=== PATIENT | female | born 1985 ===

== ENCOUNTER 2019-02-21 16:16 | Inpatient (IN) ==
[2019-02-21] MEDS ORDERED: ACETAMINOPHEN 325 MG TABLET PO PRN (20:24)
[2019-02-21] MEDS ORDERED: PROMETHAZINE 25 MG TABLET PO PRN (20:24)
[2019-02-21] MEDS ORDERED: SODIUM CHLORIDE 0.9% 1,000 ML IV PRN (20:28)
[2019-02-21] MEDS: SODIUM CHLORIDE 0.9% 1,000 ML IV SCH (21:52)
[2019-02-22] MEDS: MORPHINE 4 MG/1 ML VIAL IV PRN ×2 (01:53→10:58)
[2019-02-22 09:20] LABS: Basophils % 1.3 % (0.0-0.8); Hematocrit 24.5 VOL% (35.7-47.0); Hemoglobin 8.2 GM/DL (12.0-16.0); Immature Granulocytes % 0.7 %; Immature Granulocytes Absolute 0.01 #; Lymphocytes # 0.5 10*3/uL (1.4-4.0); Lymphocytes % 30.3 % (21.3-54.2); Mean Corpuscular HGB Conc 33.5 GM/DL (32-36); Mean Corpuscular Volume 87.8 FL (87-102); Monocytes % 7.2 % (1.7-12.7); Neutrophils % 58.5 % (38.7-73.9); Platelet Count 233 T/CUMM (130-400); Red Blood Count 2.79 MC/CUMM (3.8-5.5); Red Cell Distribution Width 15.7 % (9.3-17.3); White Blood Count 1.5 T/CUMM (4-12)
[2019-02-22 09:47] LABS: Band Neutrophils 15 % (0-10); Lymphocytes 28 % (20-55); Platelet Estimate Normal; Segmented Neutrophils 51 % (50-85); Total Cells Counted 100
[2019-02-22 09:48] LABS: Anisocytosis 1+
[2019-02-22 09:52] LABS: Osmolality,Calculated 267.1 MOS/KG (273-304)
[2019-02-22] MEDS ORDERED: ENOXAPARIN 40 MG/0.4 ML SYRINGE SUBCUT SCH (12:00)
[2019-02-22] MEDS: FILGRASTIM-SNDZ 480 MCG/0.8 ML SYRINGE SUBCUT SCH (13:13)
[2019-02-22] MEDS: oxyCODONE/ACETAMINOPHEN 5-325 MG TABLET PO PRN (15:50)
[2019-02-23] MEDS: SODIUM CHLORIDE 0.9% 1,000 ML IV SCH (02:38)
[2019-02-23] MEDS: oxyCODONE/ACETAMINOPHEN 5-325 MG TABLET PO PRN ×5 (02:39→22:55)
[2019-02-23 04:44] LABS: Basophils % 2.2 % (0.0-0.8); Eosinophils % 1.1 % (0.00-10.9); Hemoglobin 7.8 GM/DL (12.0-16.0); Immature Granulocytes % 1.1 %; Immature Granulocytes Absolute 0.01 #; Lymphocytes # 0.3 10*3/uL (1.4-4.0); Lymphocytes % 36.6 % (21.3-54.2); Mean Corpuscular HGB Conc 32.5 GM/DL (32-36); Mean Corpuscular Volume 90.2 FL (87-102); Monocytes % 17.2 % (1.7-12.7); Neutrophils % 41.8 % (38.7-73.9); Platelet Count 247 T/CUMM (130-400); Red Blood Count 2.66 MC/CUMM (3.8-5.5); Red Cell Distribution Width 16.7 % (9.3-17.3)
[2019-02-23 04:46] LABS: White Blood Count 0.9 T/CUMM (4-12)
[2019-02-23 05:00] LABS: Calcium 8.1 MG/DL (8.5-10.1)
[2019-02-23 06:13] LABS: Anisocytosis Slight; Band Neutrophils 4 % (0-10); Eosinophils 2 % (0-10); Lymphocytes 42 % (20-55); Microcytosis 1+; Segmented Neutrophils 38 % (50-85); Total Cells Counted 100
[2019-02-23 06:14] LABS: Polychromasia Few; Tear Drop Cells Few
[2019-02-23 06:15] LABS: Platelet Estimate Normal
[2019-02-23] MEDS: FILGRASTIM-SNDZ 480 MCG/0.8 ML SYRINGE SUBCUT SCH (08:35)
[2019-02-23] MEDS: MEROPENEM 1,000 MG in SODIUM CHLORIDE 0.9% 100 ML IV SCH ×2 (08:35→20:26)
[2019-02-23] MEDS: PANTOPRAZOLE 40 MG TABLET PO SCH (14:17)
[2019-02-24 02:27] LABS: Basophils % 2.1 % (0.0-0.8); Eosinophils # 0.1 10*3/uL (0.0-0.87); Eosinophils % 3.5 % (0.00-10.9); Hemoglobin 9.5 GM/DL (12.0-16.0); Immature Granulocytes % 13.4 %; Immature Granulocytes Absolute 0.19 #; Lymphocytes # 0.6 10*3/uL (1.4-4.0); Lymphocytes % 40.1 % (21.3-54.2); Mean Corpuscular HGB Conc 32.8 GM/DL (32-36); Mean Corpuscular Volume 90.3 FL (87-102); Mean Platelet Volume 8.8 FL (9.6-12.0); Monocytes % 29.6 % (1.7-12.7); NRBC # 0.02 10*3/uL; Neutrophils % 11.3 % (38.7-73.9); Platelet Count 219 T/CUMM (130-400); Red Blood Count 3.21 MC/CUMM (3.8-5.5); Red Cell Distribution Width 16.9 % (9.3-17.3); White Blood Count 1.4 T/CUMM (4-12)
[2019-02-24 02:50] LABS: Calcium 7.9 MG/DL (8.5-10.1); Osmolality,Calculated 274.5 MOS/KG (273-304)
[2019-02-24 03:40] LABS: Band Neutrophils 10 % (0-10); Eosinophils 5 % (0-10); Lymphocytes 20 % (20-55); Metamyelocytes 5 %; Myelocytes 15 %; Segmented Neutrophils 10 % (50-85); Total Cells Counted 100
[2019-02-24 03:41] LABS: Anisocytosis 1+; Platelet Estimate Adequate
[2019-02-24] MEDS: SODIUM CHLORIDE 0.9% 1,000 ML IV SCH (05:17)
[2019-02-24] MEDS ORDERED: MAGNESIUM SULF RIDER 4 GM in PREMIX 1 EACH IV PRN (07:40)
[2019-02-24] MEDS ORDERED: MAGNESIUM SULF RIDER 2 GM in PREMIX 1 EACH IV PRN (07:40)
[2019-02-24] MEDS: POTASSIUM CHLORIDE 20 MEQ TABLET PO PRN ×2 (09:28→14:18)
[2019-02-24] MEDS: PANTOPRAZOLE 40 MG TABLET PO SCH (09:28)
[2019-02-24] MEDS: oxyCODONE/ACETAMINOPHEN 5-325 MG TABLET PO PRN ×2 (09:29→14:18)
[2019-02-24] MEDS: FILGRASTIM-SNDZ 480 MCG/0.8 ML SYRINGE SUBCUT SCH (09:30)
[2019-02-24] MEDS: MEROPENEM 1,000 MG in SODIUM CHLORIDE 0.9% 100 ML IV SCH ×2 (09:32→20:15)
[2019-02-25] MEDS: oxyCODONE/ACETAMINOPHEN 5-325 MG TABLET PO PRN ×2 (00:15→09:29)
[2019-02-25] MEDS: MORPHINE 4 MG/1 ML VIAL IV PRN ×3 (02:03→20:21)
[2019-02-25 04:54] LABS: Basophils # 0.1 10*3/uL (0.0-0.2); Basophils % 1.9 % (0.0-0.8); Eosinophils # 0.1 10*3/uL (0.0-0.87); Eosinophils % 1.4 % (0.00-10.9); Hematocrit 30.3 VOL% (35.7-47.0); Hemoglobin 9.6 GM/DL (12.0-16.0); Immature Granulocytes % 6.9 %; Immature Granulocytes Absolute 0.29 #; Lymphocytes # 0.9 10*3/uL (1.4-4.0); Lymphocytes % 21.8 % (21.3-54.2); Mean Corpuscular HGB Conc 31.7 GM/DL (32-36); Mean Corpuscular Volume 92.7 FL (87-102); Mean Platelet Volume 9.2 FL (9.6-12.0); Monocytes % 16.8 % (1.7-12.7); Neutrophils % 51.2 % (38.7-73.9); Platelet Count 229 T/CUMM (130-400); Red Blood Count 3.27 MC/CUMM (3.8-5.5); Red Cell Distribution Width 17.3 % (9.3-17.3); White Blood Count 4.2 T/CUMM (4-12)
[2019-02-25 05:17] LABS: Calcium 8.1 MG/DL (8.5-10.1); Osmolality,Calculated 268.8 MOS/KG (273-304)
[2019-02-25 05:28] LABS: Band Neutrophils 6 % (0-10); Eosinophils 6 % (0-10); Lymphocytes 13 % (20-55); Platelet Estimate Adequate; Segmented Neutrophils 52 % (50-85); Total Cells Counted 100
[2019-02-25 05:29] LABS: Hypochromasia 1+
[2019-02-25] MEDS: MEROPENEM 1,000 MG in SODIUM CHLORIDE 0.9% 100 ML IV SCH (09:28)
[2019-02-25] MEDS: FILGRASTIM-SNDZ 480 MCG/0.8 ML SYRINGE SUBCUT SCH (09:28)
[2019-02-25] MEDS: PANTOPRAZOLE 40 MG TABLET PO SCH (09:29)
[2019-02-25] MEDS ORDERED: HEPARIN LOCK FLUSH 500 UNIT/5 ML SYRINGE IV ONE (09:34)
[2019-02-25] MEDS: fentaNYL 12 MCG/HR PATCH TRANSDERM SCH (09:36)
[2019-02-25] MEDS: MEROPENEM 500 MG in SODIUM CHLORIDE 0.9% 100 ML IV SCH ×2 (15:07→20:25)
[2019-02-25] MEDS: SODIUM CHLORIDE 0.9% 1,000 ML IV SCH (15:08)
[2019-02-25] MEDS: VANCOMYCIN INJ 1,500 MG in SODIUM CHLORIDE 0.9% 500 ML IV SCH (17:07)
[2019-02-26] MEDS: oxyCODONE/ACETAMINOPHEN 5-325 MG TABLET PO PRN (00:27)
[2019-02-26] MEDS: MEROPENEM 500 MG in SODIUM CHLORIDE 0.9% 100 ML IV SCH ×4 (03:10→21:02)
[2019-02-26] MEDS: VANCOMYCIN INJ 1,500 MG in SODIUM CHLORIDE 0.9% 500 ML IV SCH ×2 (03:52→17:23)
[2019-02-26 04:34] LABS: Basophils # 0.1 10*3/uL (0.0-0.2); Basophils % 0.4 % (0.0-0.8); Eosinophils # 0.1 10*3/uL (0.0-0.87); Eosinophils % 0.5 % (0.00-10.9); Hematocrit 31.1 VOL% (35.7-47.0); Hemoglobin 9.9 GM/DL (12.0-16.0); Immature Granulocytes % 11.7 %; Immature Granulocytes Absolute 1.67 #; Lymphocytes # 1.1 10*3/uL (1.4-4.0); Lymphocytes % 7.7 % (21.3-54.2); Mean Corpuscular HGB Conc 31.8 GM/DL (32-36); Mean Corpuscular Volume 92.8 FL (87-102); Monocytes % 13.2 % (1.7-12.7); Neutrophils % 66.5 % (38.7-73.9); Platelet Count 224 T/CUMM (130-400); Red Blood Count 3.35 MC/CUMM (3.8-5.5); Red Cell Distribution Width 17.6 % (9.3-17.3); White Blood Count 14.2 T/CUMM (4-12)
[2019-02-26 05:02] LABS: Anisocytosis 1+; Band Neutrophils 6 % (0-10); Hypochromasia 1+; Lymphocytes 13 % (20-55); Metamyelocytes 1 %; Microcytosis Slight; Segmented Neutrophils 63 % (50-85); Total Cells Counted 100
[2019-02-26 05:03] LABS: Platelet Estimate Adequate
[2019-02-26 05:06] LABS: Calcium 7.8 MG/DL (8.5-10.1); Osmolality,Calculated 278.1 MOS/KG (273-304)
[2019-02-26] MEDS ORDERED: POTASSIUM CHLORIDE 20 MEQ TABLET PO ONE (07:23)
[2019-02-26] MEDS: PANTOPRAZOLE 40 MG TABLET PO SCH (09:11)
[2019-02-26] MEDS: MORPHINE 4 MG/1 ML VIAL IV PRN (11:48)
[2019-02-27] MEDS: SODIUM CHLORIDE 0.9% 1,000 ML IV SCH (04:15)
[2019-02-27] MEDS: MEROPENEM 500 MG in SODIUM CHLORIDE 0.9% 100 ML IV SCH ×4 (04:15→21:35)
[2019-02-27] MEDS: VANCOMYCIN INJ 1,500 MG in SODIUM CHLORIDE 0.9% 500 ML IV SCH ×2 (04:30→17:30)
[2019-02-27 05:15] LABS: Basophils % 0.3 % (0.0-0.8); Eosinophils # 0.1 10*3/uL (0.0-0.87); Eosinophils % 0.7 % (0.00-10.9); Hematocrit 30.9 VOL% (35.7-47.0); Hemoglobin 9.7 GM/DL (12.0-16.0); Immature Granulocytes Absolute 3.03 #; Lymphocytes # 0.8 10*3/uL (1.4-4.0); Lymphocytes % 8.9 % (21.3-54.2); Mean Corpuscular HGB Conc 31.4 GM/DL (32-36); Mean Corpuscular Volume 93.6 FL (87-102); Mean Platelet Volume 9.6 FL (9.6-12.0); Monocytes % 13.4 % (1.7-12.7); Neutrophils % 43.7 % (38.7-73.9); Platelet Count 237 T/CUMM (130-400); Red Cell Distribution Width 17.5 % (9.3-17.3); White Blood Count 9.2 T/CUMM (4-12)
[2019-02-27 05:21] LABS: Calcium 7.8 MG/DL (8.5-10.1); Osmolality,Calculated 275.3 MOS/KG (273-304)
[2019-02-27 06:15] LABS: Band Neutrophils 12 % (0-10); Lymphocytes 13 % (20-55); Myelocytes 13 %; Segmented Neutrophils 46 % (50-85)
[2019-02-27 06:17] LABS: Anisocytosis 1+; Ovalocytes 1+; Tear Drop Cells 1+
[2019-02-27 06:18] LABS: Platelet Estimate Adequate
[2019-02-27] MEDS ORDERED: POTASSIUM CHLORIDE 20 MEQ TABLET PO ONE (07:10)
[2019-02-27 07:46] LABS: Metamyelocytes 1 %
[2019-02-27 07:47] LABS: Total Cells Counted 100
[2019-02-27] MEDS: PANTOPRAZOLE 40 MG TABLET PO SCH (08:52)
[2019-02-27] MEDS ORDERED: DIAZEPAM 5 MG TABLET PO ONE (14:04)
[2019-02-27] MEDS ORDERED: ONDANSETRON 4 MG/2 ML VIAL IV ONE (14:06)
[2019-02-27] MEDS ORDERED: fentaNYL 100 MCG/2 ML VIAL IV ONE (14:06)
[2019-02-27] MEDS ORDERED: MIDAZOLAM 2 MG/2 ML VIAL IV ONE (14:06)
[2019-02-28] MEDS: MEROPENEM 500 MG in SODIUM CHLORIDE 0.9% 100 ML IV SCH ×4 (03:50→21:26)
[2019-02-28] MEDS: VANCOMYCIN INJ 1,500 MG in SODIUM CHLORIDE 0.9% 500 ML IV SCH ×2 (05:05→17:13)
[2019-02-28] MEDS: SODIUM CHLORIDE 0.9% 1,000 ML IV SCH ×2 (05:38→21:29)
[2019-02-28 06:40] LABS: Basophils % 0.2 % (0.0-0.8); Eosinophils # 0.1 10*3/uL (0.0-0.87); Eosinophils % 1.1 % (0.00-10.9); Hematocrit 29.7 VOL% (35.7-47.0); Hemoglobin 9.5 GM/DL (12.0-16.0); Immature Granulocytes % 24.1 %; Immature Granulocytes Absolute 1.94 #; Lymphocytes # 0.8 10*3/uL (1.4-4.0); Mean Corpuscular Volume 92.2 FL (87-102); Mean Platelet Volume 9.6 FL (9.6-12.0); Monocytes % 16.1 % (1.7-12.7); Neutrophils % 48.5 % (38.7-73.9); Platelet Count 269 T/CUMM (130-400); Red Blood Count 3.22 MC/CUMM (3.8-5.5); Red Cell Distribution Width 17.2 % (9.3-17.3); White Blood Count 8.1 T/CUMM (4-12)
[2019-02-28 06:52] LABS: Calcium 7.8 MG/DL (8.5-10.1); Osmolality,Calculated 275.4 MOS/KG (273-304)
[2019-02-28 07:45] LABS: Band Neutrophils 12 % (0-10); Lymphocytes 18 % (20-55); Metamyelocytes 1 %; Myelocytes 7 %; Platelet Estimate Adequate; Segmented Neutrophils 50 % (50-85); Total Cells Counted 100
[2019-02-28 07:46] LABS: Hypochromasia 1+
[2019-02-28 07:47] LABS: Microcytosis Slight
[2019-02-28] MEDS ORDERED: DIAZEPAM 5 MG TABLET PO ONE (08:30)
[2019-02-28] MEDS ORDERED: MORPHINE 10 MG/1 ML VIAL ONE (09:05)
[2019-02-28] MEDS ORDERED: MIDAZOLAM 2 MG/2 ML VIAL ONE (09:09)
[2019-02-28] MEDS ORDERED: fentaNYL 100 MCG/2 ML VIAL ONE (09:09)
[2019-02-28] MEDS: fentaNYL 12 MCG/HR PATCH TRANSDERM SCH (10:47)
[2019-02-28] MEDS: oxyCODONE/ACETAMINOPHEN 5-325 MG TABLET PO PRN (11:11)
[2019-02-28] MEDS: POTASSIUM CHLORIDE 20 MEQ TABLET PO SCH ×2 (11:12→21:23)
[2019-02-28] MEDS: fentaNYL 25 MCG/HR PATCH TRANSDERM SCH (11:12)
[2019-02-28] MEDS: PANTOPRAZOLE 40 MG TABLET PO SCH (11:12)
[2019-02-28] MEDS ORDERED: MIDAZOLAM 2 MG/2 ML VIAL IV ONE (13:06)
[2019-02-28] MEDS ORDERED: fentaNYL 100 MCG/2 ML VIAL IV ONE (13:06)
[2019-02-28] MEDS: MORPHINE 4 MG/1 ML VIAL IV PRN ×2 (15:44→18:48)
[2019-02-28] MEDS: oxyCODONE IR 5 MG TABLET PO PRN (17:16)
[2019-03-01] MEDS: oxyCODONE IR 5 MG TABLET PO PRN ×3 (03:59→21:16)
[2019-03-01] MEDS: MEROPENEM 500 MG in SODIUM CHLORIDE 0.9% 100 ML IV SCH ×4 (04:35→21:15)
[2019-03-01 04:56] LABS: Basophils # 0.1 10*3/uL (0.0-0.2); Basophils % 1.3 % (0.0-0.8); Eosinophils # 0.1 10*3/uL (0.0-0.87); Eosinophils % 1.7 % (0.00-10.9); Hematocrit 30.4 VOL% (35.7-47.0); Hemoglobin 9.5 GM/DL (12.0-16.0); Immature Granulocytes Absolute 1.17 #; Lymphocytes # 0.9 10*3/uL (1.4-4.0); Lymphocytes % 12.5 % (21.3-54.2); Mean Corpuscular HGB Conc 31.3 GM/DL (32-36); Mean Corpuscular Volume 93.8 FL (87-102); Mean Platelet Volume 9.1 FL (9.6-12.0); Monocytes % 16.7 % (1.7-12.7); Neutrophils % 50.8 % (38.7-73.9); Platelet Count 327 T/CUMM (130-400); Red Blood Count 3.24 MC/CUMM (3.8-5.5); Red Cell Distribution Width 16.9 % (9.3-17.3); White Blood Count 6.9 T/CUMM (4-12)
[2019-03-01 05:28] LABS: Calcium 7.8 MG/DL (8.5-10.1); Osmolality,Calculated 278.1 MOS/KG (273-304)
[2019-03-01 05:33] LABS: Band Neutrophils 6 % (0-10); Eosinophils 3 % (0-10); Hypochromasia 1+; Lymphocytes 11 % (20-55); Ovalocytes Slight; Platelet Estimate Adequate; Segmented Neutrophils 64 % (50-85); Total Cells Counted 100
[2019-03-01 05:34] LABS: Microcytosis Slight
[2019-03-01] MEDS: SODIUM CHLORIDE 0.9% 1,000 ML IV SCH (05:43)
[2019-03-01] MEDS: VANCOMYCIN INJ 1,500 MG in SODIUM CHLORIDE 0.9% 500 ML IV SCH ×2 (05:43→16:53)
[2019-03-01] MEDS: MORPHINE 4 MG/1 ML VIAL IV PRN (08:18)
[2019-03-01] MEDS: PANTOPRAZOLE 40 MG TABLET PO SCH (08:19)
[2019-03-01] MEDS: POTASSIUM CHLORIDE 20 MEQ TABLET PO SCH ×2 (08:19→21:16)
[2019-03-02 02:52] LABS: Basophils % 0.5 % (0.0-0.8); Eosinophils # 0.1 10*3/uL (0.0-0.87); Eosinophils % 1.5 % (0.00-10.9); Hematocrit 30.2 VOL% (35.7-47.0); Hemoglobin 9.5 GM/DL (12.0-16.0); Immature Granulocytes % 4.3 %; Immature Granulocytes Absolute 0.37 #; Lymphocytes # 0.5 10*3/uL (1.4-4.0); Lymphocytes % 6.2 % (21.3-54.2); Mean Corpuscular HGB Conc 31.5 GM/DL (32-36); Mean Corpuscular Volume 92.9 FL (87-102); Mean Platelet Volume 9.3 FL (9.6-12.0); Monocytes % 13.1 % (1.7-12.7); Neutrophils % 74.4 % (38.7-73.9); Platelet Count 340 T/CUMM (130-400); Red Blood Count 3.25 MC/CUMM (3.8-5.5); Red Cell Distribution Width 16.4 % (9.3-17.3); White Blood Count 8.7 T/CUMM (4-12)
[2019-03-02] MEDS: MEROPENEM 500 MG in SODIUM CHLORIDE 0.9% 100 ML IV SCH ×4 (02:59→20:37)
[2019-03-02 03:24] LABS: Albumin 1.6 G/DL (3.4-5.0); Bilirubin,Total 0.5 MG/DL (0.2-1.0); Osmolality,Calculated 277.3 MOS/KG (273-304); Total Protein 5.4 G/DL (6.4-8.3)
[2019-03-02] MEDS: VANCOMYCIN INJ 1,500 MG in SODIUM CHLORIDE 0.9% 500 ML IV SCH ×2 (04:36→18:08)
[2019-03-02] MEDS: SODIUM CHLORIDE 0.9% 1,000 ML IV SCH (04:36)
[2019-03-02] MEDS: oxyCODONE IR 5 MG TABLET PO PRN ×2 (07:36→20:36)
[2019-03-02] MEDS: PANTOPRAZOLE 40 MG TABLET PO SCH (09:48)
[2019-03-02] MEDS: POTASSIUM CHLORIDE 20 MEQ TABLET PO SCH ×2 (09:48→20:41)
[2019-03-02] MEDS: MORPHINE 4 MG/1 ML VIAL IV PRN (09:55)
[2019-03-03] MEDS: MORPHINE 4 MG/1 ML VIAL IV PRN ×3 (00:27→17:47)
[2019-03-03] MEDS: MEROPENEM 500 MG in SODIUM CHLORIDE 0.9% 100 ML IV SCH ×4 (02:56→20:59)
[2019-03-03] MEDS: oxyCODONE IR 5 MG TABLET PO PRN ×3 (02:57→23:10)
[2019-03-03] MEDS: VANCOMYCIN INJ 1,500 MG in SODIUM CHLORIDE 0.9% 500 ML IV SCH ×2 (04:20→17:46)
[2019-03-03 05:20] LABS: Basophils % 0.4 % (0.0-0.8); Eosinophils # 0.3 10*3/uL (0.0-0.87); Eosinophils % 3.2 % (0.00-10.9); Hematocrit 33.6 VOL% (35.7-47.0); Hemoglobin 10.4 GM/DL (12.0-16.0); Immature Granulocytes % 2.2 %; Immature Granulocytes Absolute 0.22 #; Lymphocytes # 0.9 10*3/uL (1.4-4.0); Lymphocytes % 8.8 % (21.3-54.2); Mean Corpuscular Volume 94.1 FL (87-102); Mean Platelet Volume 9.1 FL (9.6-12.0); Monocytes % 15.5 % (1.7-12.7); Neutrophils % 69.9 % (38.7-73.9); Platelet Count 419 T/CUMM (130-400); Red Blood Count 3.57 MC/CUMM (3.8-5.5); Red Cell Distribution Width 16.5 % (9.3-17.3); White Blood Count 10.1 T/CUMM (4-12)
[2019-03-03 06:03] LABS: Albumin 1.7 G/DL (3.4-5.0); Bilirubin,Total 0.7 MG/DL (0.2-1.0); Calcium 8.2 MG/DL (8.5-10.1); Osmolality,Calculated 272.4 MOS/KG (273-304); Total Protein 6.1 G/DL (6.4-8.3)
[2019-03-03] MEDS: PANTOPRAZOLE 40 MG TABLET PO SCH (08:56)
[2019-03-03] MEDS: fentaNYL 25 MCG/HR PATCH TRANSDERM SCH (08:56)
[2019-03-03] MEDS: POTASSIUM CHLORIDE 20 MEQ TABLET PO SCH ×2 (08:56→20:59)
[2019-03-03] MEDS: FLUCONAZOLE INJ 200 MG in PREMIX 1 EACH IV SCH (13:34)
[2019-03-03] MEDS: oxyCODONE/ACETAMINOPHEN 5-325 MG TABLET PO SCH (20:55)
[2019-03-04 02:30] LABS: Basophils # 0.1 10*3/uL (0.0-0.2); Basophils % 0.6 % (0.0-0.8); Eosinophils # 0.5 10*3/uL (0.0-0.87); Eosinophils % 4.3 % (0.00-10.9); Hematocrit 34.8 VOL% (35.7-47.0); Immature Granulocytes % 2.8 %; Immature Granulocytes Absolute 0.33 #; Lymphocytes # 2.4 10*3/uL (1.4-4.0); Lymphocytes % 20.1 % (21.3-54.2); Mean Corpuscular HGB Conc 31.6 GM/DL (32-36); Monocytes % 14.6 % (1.7-12.7); Neutrophils % 57.6 % (38.7-73.9); Platelet Count 635 T/CUMM (130-400); Red Blood Count 3.74 MC/CUMM (3.8-5.5); Red Cell Distribution Width 16.8 % (9.3-17.3); White Blood Count 11.9 T/CUMM (4-12)
[2019-03-04] MEDS: MORPHINE 4 MG/1 ML VIAL IV PRN ×2 (02:30→14:57)
[2019-03-04] MEDS: MEROPENEM 500 MG in SODIUM CHLORIDE 0.9% 100 ML IV SCH (02:33)
[2019-03-04 02:59] LABS: Albumin 1.8 G/DL (3.4-5.0); Bilirubin,Total 0.8 MG/DL (0.2-1.0); Calcium 8.1 MG/DL (8.5-10.1); Osmolality,Calculated 273.5 MOS/KG (273-304); Total Protein 6.4 G/DL (6.4-8.3)
[2019-03-04] MEDS: VANCOMYCIN INJ 1,500 MG in SODIUM CHLORIDE 0.9% 500 ML IV SCH (04:21)
[2019-03-04] MEDS: LINEZOLID INJ 600 MG in PREMIX 1 EACH IV SCH ×2 (09:16→20:16)
[2019-03-04] MEDS: POTASSIUM CHLORIDE 20 MEQ TABLET PO SCH (09:17)
[2019-03-04] MEDS: oxyCODONE/ACETAMINOPHEN 5-325 MG TABLET PO SCH ×2 (09:17→20:16)
[2019-03-04] MEDS: PANTOPRAZOLE 40 MG TABLET PO SCH (09:17)
[2019-03-04] MEDS ORDERED: LIDOCAINE/PRILOCAINE CREAM 5 GM TUBE TOP ONE (09:38)
[2019-03-04] MEDS: SODIUM CHLORIDE 0.9% 1,000 ML IV SCH (10:55)
[2019-03-04] MEDS: FLUCONAZOLE INJ 200 MG in PREMIX 1 EACH IV SCH (12:32)
[2019-03-04] MEDS: oxyCODONE IR 5 MG TABLET PO PRN (12:33)
[2019-03-05] MEDS: MORPHINE 4 MG/1 ML VIAL IV PRN (02:39)
[2019-03-05 04:39] LABS: Basophils # 0.1 10*3/uL (0.0-0.2); Basophils % 0.9 % (0.0-0.8); Eosinophils # 0.3 10*3/uL (0.0-0.87); Eosinophils % 3.7 % (0.00-10.9); Hematocrit 30.1 VOL% (35.7-47.0); Hemoglobin 9.4 GM/DL (12.0-16.0); Immature Granulocytes Absolute 0.08 #; Lymphocytes # 0.9 10*3/uL (1.4-4.0); Lymphocytes % 10.9 % (21.3-54.2); Mean Corpuscular HGB Conc 31.2 GM/DL (32-36); Mean Corpuscular Volume 93.2 FL (87-102); Mean Platelet Volume 8.6 FL (9.6-12.0); Monocytes % 13.3 % (1.7-12.7); Neutrophils % 70.2 % (38.7-73.9); Platelet Count 535 T/CUMM (130-400); Red Blood Count 3.23 MC/CUMM (3.8-5.5); Red Cell Distribution Width 16.2 % (9.3-17.3); White Blood Count 7.9 T/CUMM (4-12)
[2019-03-05 04:52] LABS: Albumin 1.5 G/DL (3.4-5.0); Bilirubin,Total 0.9 MG/DL (0.2-1.0); Calcium 8.2 MG/DL (8.5-10.1); Osmolality,Calculated 272.5 MOS/KG (273-304); Total Protein 5.5 G/DL (6.4-8.3)
[2019-03-05] MEDS: oxyCODONE IR 5 MG TABLET PO PRN ×2 (04:57→12:39)
[2019-03-05] MEDS: oxyCODONE/ACETAMINOPHEN 5-325 MG TABLET PO SCH ×2 (08:50→20:07)
[2019-03-05] MEDS: PANTOPRAZOLE 40 MG TABLET PO SCH (08:51)
[2019-03-05] MEDS: LINEZOLID INJ 600 MG in PREMIX 1 EACH IV SCH ×2 (08:52→20:08)
[2019-03-05] MEDS: FLUCONAZOLE INJ 200 MG in PREMIX 1 EACH IV SCH (12:40)
[2019-03-06] MEDS: MORPHINE 4 MG/1 ML VIAL IV PRN (02:33)
[2019-03-06] MEDS: oxyCODONE IR 5 MG TABLET PO PRN ×2 (06:32→15:15)
[2019-03-06] MEDS: LINEZOLID INJ 600 MG in PREMIX 1 EACH IV SCH ×2 (09:48→21:19)
[2019-03-06] MEDS: PANTOPRAZOLE 40 MG TABLET PO SCH (09:48)
[2019-03-06] MEDS: oxyCODONE/ACETAMINOPHEN 5-325 MG TABLET PO SCH ×2 (09:48→21:19)
[2019-03-06] MEDS: fentaNYL 25 MCG/HR PATCH TRANSDERM SCH (09:49)
[2019-03-06] MEDS: FLUCONAZOLE INJ 200 MG in PREMIX 1 EACH IV SCH (15:10)
[2019-03-07] MEDS: oxyCODONE IR 5 MG TABLET PO PRN ×2 (01:42→13:58)
[2019-03-07] MEDS: MORPHINE 4 MG/1 ML VIAL IV PRN ×2 (05:58→10:32)
[2019-03-07] MEDS: PANTOPRAZOLE 40 MG TABLET PO SCH (09:23)
[2019-03-07] MEDS: oxyCODONE/ACETAMINOPHEN 5-325 MG TABLET PO SCH (09:23)
[2019-03-07] MEDS: LINEZOLID INJ 600 MG in PREMIX 1 EACH IV SCH (09:24)
[2019-03-07] MEDS: FLUCONAZOLE INJ 200 MG in PREMIX 1 EACH IV SCH (13:50)
[2019-03-07 15:22] VITALS: BP 96/57
== END 2019-03-07 16:20 | DRG 394 ==
LOC: N.4E → SUATTDRO 20:25 → OBSVTOIN 20:25
PROVIDERS: ADMIT Internal Medicine; ATTEND Internal Medicine

== ENCOUNTER 2019-05-21 11:01 | Inpatient (IN) ==
[2019-05-21] MEDS ORDERED: diphenhydrAMINE CAP 25 MG CAPSULE PO PRN (13:42)
[2019-05-21 14:46] LABS: Basophils # 0.1 10*3/uL (0.0-0.2); Basophils % 0.4 % (0.0-0.8); Eosinophils # 0.2 10*3/uL (0.0-0.87); Eosinophils % 1.8 % (0.00-10.9); Hematocrit 33.7 VOL% (35.7-47.0); Hemoglobin 10.7 GM/DL (12.0-16.0); Immature Granulocytes % 0.5 %; Immature Granulocytes Absolute 0.06 #; Lymphocytes # 0.7 10*3/uL (1.4-4.0); Lymphocytes % 5.9 % (21.3-54.2); Mean Corpuscular HGB Conc 31.8 GM/DL (32-36); Mean Corpuscular Volume 95.7 FL (87-102); Mean Platelet Volume 9.3 FL (9.6-12.0); Monocytes % 6.3 % (1.7-12.7); Neutrophils % 85.1 % (38.7-73.9); Platelet Count 463 T/CUMM (130-400); Red Blood Count 3.52 MC/CUMM (3.8-5.5); Red Cell Distribution Width 15.2 % (9.3-17.3); White Blood Count 12.2 T/CUMM (4-12)
[2019-05-21 14:54] LABS: INR 1.1; PT Patient Result 12.1 SECS
[2019-05-21 15:09] LABS: Albumin 2.2 G/DL (3.4-5.0); Bilirubin,Direct 5.56 MG/DL (0.0-0.20); Bilirubin,Indirect 0.9 MG/DL (0.0-1.0); Bilirubin,Total 6.5 MG/DL (0.2-1.0); Total Protein 7.8 G/DL (6.4-8.3)
[2019-05-21 15:09] LABS: Albumin 2.2 G/DL (3.4-5.0); Bilirubin,Direct 5.48 MG/DL (0.0-0.20); Bilirubin,Total 6.5 MG/DL (0.2-1.0); Calcium 8.8 MG/DL (8.5-10.1); Osmolality,Calculated 271.7 MOS/KG (273-304); Total Protein 7.8 G/DL (6.4-8.3)
[2019-05-21 16:38] LABS: Hepatitis B Core IgM Quant 0.08 Index; Hepatitis B Surface Ag Quant < 0.10 Index; Hepatitis B Surface Ag Result Negative (Negative); Hepatitis C Virus Ab Quant 0.03 Index; Hepatitis C Virus Ab Result Negative (Negative)
[2019-05-21] MEDS: ONDANSETRON 4 MG/2 ML VIAL IV PRN (19:34)
[2019-05-21] MEDS: HYDROmorphone 2 MG/1 ML VIAL IV PRN (20:48)
[2019-05-22] MEDS: ONDANSETRON 4 MG/2 ML VIAL IV PRN ×3 (05:34→22:14)
[2019-05-22] MEDS: HYDROmorphone 2 MG/1 ML VIAL IV PRN ×3 (06:27→20:07)
[2019-05-22 06:42] LABS: Basophils # 0.1 10*3/uL (0.0-0.2); Basophils % 0.5 % (0.0-0.8); Eosinophils # 0.4 10*3/uL (0.0-0.87); Eosinophils % 3.5 % (0.00-10.9); Hematocrit 33.1 VOL% (35.7-47.0); Hemoglobin 10.6 GM/DL (12.0-16.0); Immature Granulocytes % 0.4 %; Immature Granulocytes Absolute 0.04 #; Lymphocytes # 0.6 10*3/uL (1.4-4.0); Lymphocytes % 5.8 % (21.3-54.2); Mean Corpuscular Volume 96.5 FL (87-102); Mean Platelet Volume 9.4 FL (9.6-12.0); Monocytes % 5.9 % (1.7-12.7); Neutrophils % 83.9 % (38.7-73.9); Platelet Count 404 T/CUMM (130-400); Red Blood Count 3.43 MC/CUMM (3.8-5.5); Red Cell Distribution Width 15.3 % (9.3-17.3); White Blood Count 10.8 T/CUMM (4-12)
[2019-05-22 07:11] LABS: Albumin 2.2 G/DL (3.4-5.0); Bilirubin,Total 7.2 MG/DL (0.2-1.0); Calcium 9.1 MG/DL (8.5-10.1); Osmolality,Calculated 272.7 MOS/KG (273-304); Total Protein 7.6 G/DL (6.4-8.3)
[2019-05-22] MEDS: PANTOPRAZOLE 40 MG VIAL IV SCH (08:56)
[2019-05-23] MEDS: HYDROmorphone 2 MG/1 ML VIAL IV PRN ×3 (03:55→18:15)
[2019-05-23] MEDS: ONDANSETRON 4 MG/2 ML VIAL IV PRN ×3 (04:03→18:13)
[2019-05-23 04:55] LABS: Basophils # 0.1 10*3/uL (0.0-0.2); Basophils % 0.4 % (0.0-0.8); Eosinophils # 0.4 10*3/uL (0.0-0.87); Hematocrit 33.1 VOL% (35.7-47.0); Hemoglobin 10.9 GM/DL (12.0-16.0); Immature Granulocytes % 0.5 %; Immature Granulocytes Absolute 0.06 #; Lymphocytes # 0.7 10*3/uL (1.4-4.0); Lymphocytes % 5.8 % (21.3-54.2); Mean Corpuscular HGB Conc 32.9 GM/DL (32-36); Mean Corpuscular Volume 95.1 FL (87-102); Mean Platelet Volume 10.2 FL (9.6-12.0); Monocytes % 5.9 % (1.7-12.7); Neutrophils % 84.4 % (38.7-73.9); Platelet Count 431 T/CUMM (130-400); Red Blood Count 3.48 MC/CUMM (3.8-5.5); Red Cell Distribution Width 15.3 % (9.3-17.3); White Blood Count 11.9 T/CUMM (4-12)
[2019-05-23 05:21] LABS: Bilirubin,Direct 6.06 MG/DL (0.0-0.20); Bilirubin,Indirect 1.7 MG/DL (0.0-1.0); Bilirubin,Total 7.8 MG/DL (0.2-1.0)
[2019-05-23 05:23] LABS: Albumin 2.2 G/DL (3.4-5.0); Bilirubin,Total 7.7 MG/DL (0.2-1.0); Calcium 9.1 MG/DL (8.5-10.1); Total Protein 7.6 G/DL (6.4-8.3)
[2019-05-23] MEDS ORDERED: fentaNYL 100 MCG/2 ML VIAL ONE (07:19)
[2019-05-23] MEDS ORDERED: MIDAZOLAM 2 MG/2 ML VIAL ONE (07:20)
[2019-05-23] MEDS: LACTATED RINGERS 1,000 ML IV SCH (08:00)
[2019-05-23] MEDS ORDERED: PROPOFOL 200 MG/20 ML VIAL IV ONE (08:30)
[2019-05-23] MEDS ORDERED: SUCCINYLCHOLINE 200 MG/10 ML VIAL ONE (08:30)
[2019-05-23] MEDS ORDERED: ONDANSETRON 4 MG/2 ML VIAL ONE (08:30)
[2019-05-23] MEDS ORDERED: SEVOFLURANE 1 UNIT/15 MINUTE INH ONE (08:30)
[2019-05-23] MEDS ORDERED: LIDOCAINE 2% 5 ML VIAL ONE (08:30)
[2019-05-23] MEDS: PANTOPRAZOLE 40 MG VIAL IV SCH (09:30)
[2019-05-23] MEDS ORDERED: INDOMETHACIN SUPP 50 MG SUPP RECTAL ONE ×3 (09:30→11:00)
[2019-05-23] MEDS ORDERED: GLUCAGON 1 MG VIAL ONE (10:15)
[2019-05-24] MEDS: HYDROmorphone 2 MG/1 ML VIAL IV PRN ×7 (00:15→20:40)
[2019-05-24 04:40] LABS: Basophils % 0.4 % (0.0-0.8); Eosinophils # 0.2 10*3/uL (0.0-0.87); Hematocrit 30.9 VOL% (35.7-47.0); Immature Granulocytes % 0.6 %; Immature Granulocytes Absolute 0.06 #; Lymphocytes # 0.6 10*3/uL (1.4-4.0); Lymphocytes % 5.2 % (21.3-54.2); Mean Corpuscular HGB Conc 32.4 GM/DL (32-36); Mean Corpuscular Volume 95.4 FL (87-102); Mean Platelet Volume 9.4 FL (9.6-12.0); Monocytes % 6.1 % (1.7-12.7); Neutrophils % 85.7 % (38.7-73.9); Platelet Count 415 T/CUMM (130-400); Red Blood Count 3.24 MC/CUMM (3.8-5.5); Red Cell Distribution Width 15.2 % (9.3-17.3); White Blood Count 10.8 T/CUMM (4-12)
[2019-05-24 05:16] LABS: Bilirubin,Direct 6.71 MG/DL (0.0-0.20); Bilirubin,Indirect 1.7 MG/DL (0.0-1.0); Bilirubin,Total 8.4 MG/DL (0.2-1.0)
[2019-05-24 05:20] LABS: Bilirubin,Total 8.1 MG/DL (0.2-1.0); Calcium 8.5 MG/DL (8.5-10.1); Osmolality,Calculated 264.2 MOS/KG (273-304)
[2019-05-24] MEDS: ONDANSETRON 4 MG/2 ML VIAL IV PRN ×2 (07:20→20:41)
[2019-05-24] MEDS ORDERED: ROCURONIUM 100 MG/10 ML VIAL IV ONE ×2 (09:00→14:26)
[2019-05-24] MEDS ORDERED: SUCCINYLCHOLINE 200 MG/10 ML VIAL ONE ×2 (09:00→14:26)
[2019-05-24] MEDS ORDERED: PROPOFOL 200 MG/20 ML VIAL IV ONE ×2 (09:00→14:25)
[2019-05-24] MEDS ORDERED: LIDOCAINE 100 MG/5 ML SYRINGE ONE (09:00)
[2019-05-24] MEDS ORDERED: ONDANSETRON 4 MG/2 ML VIAL ONE ×2 (09:00→14:47)
[2019-05-24] MEDS: PANTOPRAZOLE 40 MG VIAL IV SCH (09:56)
[2019-05-24] MEDS: LACTATED RINGERS 1,000 ML IV SCH (09:58)
[2019-05-24] MEDS ORDERED: INDOMETHACIN SUPP 50 MG SUPP RECTAL ONE (10:48)
[2019-05-24] MEDS ORDERED: fentaNYL 100 MCG/2 ML VIAL ONE ×2 (11:00→14:25)
[2019-05-24] MEDS ORDERED: GLUCAGON 1 MG VIAL ONE (12:28)
[2019-05-24] MEDS ORDERED: LEVOFLOXACIN INJ 100 ML IV ONE (13:40)
[2019-05-24] MEDS ORDERED: MIDAZOLAM 2 MG/2 ML VIAL ONE (14:25)
[2019-05-24] MEDS ORDERED: LACTATED RINGERS 1,000 ML IV ONE (14:26)
[2019-05-24] MEDS ORDERED: HYDROmorphone 2 MG/1 ML VIAL ONE (14:48)
[2019-05-24] MEDS ORDERED: ONDANSETRON 4 MG/2 ML VIAL IV PRN (14:51)
[2019-05-25] MEDS: HYDROmorphone 2 MG/1 ML VIAL IV PRN ×7 (01:05→23:34)
[2019-05-25] MEDS: ONDANSETRON 4 MG/2 ML VIAL IV PRN ×3 (05:38→20:42)
[2019-05-25 05:40] LABS: Basophils % 0.4 % (0.0-0.8); Eosinophils # 0.3 10*3/uL (0.0-0.87); Eosinophils % 2.4 % (0.00-10.9); Hematocrit 29.9 VOL% (35.7-47.0); Hemoglobin 9.7 GM/DL (12.0-16.0); Immature Granulocytes % 0.5 %; Immature Granulocytes Absolute 0.05 #; Lymphocytes # 0.5 10*3/uL (1.4-4.0); Lymphocytes % 4.8 % (21.3-54.2); Mean Corpuscular HGB Conc 32.4 GM/DL (32-36); Mean Corpuscular Volume 95.5 FL (87-102); Monocytes % 6.9 % (1.7-12.7); Platelet Count 409 T/CUMM (130-400); Red Blood Count 3.13 MC/CUMM (3.8-5.5); Red Cell Distribution Width 15.2 % (9.3-17.3); White Blood Count 10.9 T/CUMM (4-12)
[2019-05-25 06:21] LABS: Alanine Aminotransferase 78 U/L (13-56); Albumin 1.9 G/DL (3.4-5.0); Alkaline Phosphatase 699 U/L (45-117); Aspartate Amino Transferase 127 U/L (0-37); Bilirubin,Direct 4.11 MG/DL (0.0-0.20); Bilirubin,Indirect 1.3 MG/DL (0.0-1.0); Bilirubin,Total 5.4 MG/DL (0.2-1.0); Blood Urea Nitrogen 5 MG/DL (7-18); Calcium 8.8 MG/DL (8.5-10.1); Glucose 77 MG/DL (74-106); Osmolality,Calculated 265.1 MOS/KG (273-304); Total Protein 7.1 G/DL (6.4-8.3)
[2019-05-25 06:30] LABS: Eosinophils 1 % (0-10); Lymphocytes 7 % (20-55); Platelet Estimate Normal; Segmented Neutrophils 83 % (50-85); Total Cells Counted 100
[2019-05-25] MEDS: PANTOPRAZOLE 40 MG VIAL IV SCH (08:44)
[2019-05-25] MEDS: LACTATED RINGERS 1,000 ML IV SCH (08:49)
[2019-05-26] MEDS: ONDANSETRON 4 MG/2 ML VIAL IV PRN ×4 (03:24→23:03)
[2019-05-26] MEDS: HYDROmorphone 2 MG/1 ML VIAL IV PRN ×7 (03:28→23:06)
[2019-05-26 04:08] LABS: Bilirubin,Direct 3.35 MG/DL (0.0-0.20); Bilirubin,Indirect 1.3 MG/DL (0.0-1.0); Bilirubin,Total 4.6 MG/DL (0.2-1.0)
[2019-05-26] MEDS: PANTOPRAZOLE 40 MG VIAL IV SCH (08:25)
[2019-05-26] MEDS: LACTATED RINGERS 1,000 ML IV SCH (13:35)
[2019-05-27] MEDS: HYDROmorphone 2 MG/1 ML VIAL IV PRN ×7 (02:07→23:45)
[2019-05-27] MEDS: ONDANSETRON 4 MG/2 ML VIAL IV PRN ×3 (05:22→19:55)
[2019-05-27 05:42] LABS: Basophils # 0.1 10*3/uL (0.0-0.2); Basophils % 0.5 % (0.0-0.8); Eosinophils # 0.4 10*3/uL (0.0-0.87); Eosinophils % 3.3 % (0.00-10.9); Hematocrit 30.6 VOL% (35.7-47.0); Hemoglobin 9.8 GM/DL (12.0-16.0); Immature Granulocytes % 0.7 %; Immature Granulocytes Absolute 0.08 #; Lymphocytes # 0.7 10*3/uL (1.4-4.0); Lymphocytes % 6.6 % (21.3-54.2); Mean Corpuscular Volume 97.5 FL (87-102); Mean Platelet Volume 9.2 FL (9.6-12.0); Neutrophils % 80.9 % (38.7-73.9); Platelet Count 372 T/CUMM (130-400); Red Blood Count 3.14 MC/CUMM (3.8-5.5); Red Cell Distribution Width 14.4 % (9.3-17.3); White Blood Count 11.1 T/CUMM (4-12)
[2019-05-27 06:20] LABS: Bilirubin,Total 4.2 MG/DL (0.2-1.0); Calcium 8.7 MG/DL (8.5-10.1); Total Protein 7.2 G/DL (6.4-8.3)
[2019-05-27 06:20] LABS: Bilirubin,Direct 3.3 MG/DL (0.0-0.20); Bilirubin,Indirect 0.9 MG/DL (0.0-1.0); Bilirubin,Total 4.2 MG/DL (0.2-1.0)
[2019-05-27] MEDS: PANTOPRAZOLE 40 MG VIAL IV SCH (08:23)
[2019-05-27] MEDS: LACTATED RINGERS 1,000 ML IV SCH (08:27)
[2019-05-27] MEDS ORDERED: FLUOROURACIL 800 MG in SYRINGE 1 EACH IV ONE (08:48)
[2019-05-27] MEDS ORDERED: DEXAMETHASONE 10 MG/1 ML VIAL IV ONE (08:54)
[2019-05-27] MEDS ORDERED: FLUOROURACIL 2,000 MG in SODIUM CHLORIDE 0.9% 1,000 ML IV SCH (09:00)
[2019-05-27] MEDS ORDERED: FLUOROURACIL IV ONE (09:30)
[2019-05-27] MEDS: FLUOROURACIL 1,500 MG in SODIUM CHLORIDE 0.9% 1,000 ML IV SCH (12:08)
[2019-05-28] MEDS: ONDANSETRON 4 MG/2 ML VIAL IV PRN ×3 (03:16→19:40)
[2019-05-28] MEDS: HYDROmorphone 2 MG/1 ML VIAL IV PRN ×7 (03:20→23:33)
[2019-05-28 04:59] LABS: Basophils % 0.2 % (0.0-0.8); Hematocrit 34.9 VOL% (35.7-47.0); Immature Granulocytes % 0.7 %; Immature Granulocytes Absolute 0.08 #; Lymphocytes # 0.6 10*3/uL (1.4-4.0); Lymphocytes % 5.2 % (21.3-54.2); Mean Corpuscular HGB Conc 31.5 GM/DL (32-36); Mean Corpuscular Volume 98.6 FL (87-102); Mean Platelet Volume 9.6 FL (9.6-12.0); Monocytes % 6.3 % (1.7-12.7); Neutrophils % 87.6 % (38.7-73.9); Platelet Count 398 T/CUMM (130-400); Red Blood Count 3.54 MC/CUMM (3.8-5.5); Red Cell Distribution Width 13.7 % (9.3-17.3); White Blood Count 11.9 T/CUMM (4-12)
[2019-05-28 06:39] LABS: Albumin 2.1 G/DL (3.4-5.0); Bilirubin,Total 3.7 MG/DL (0.2-1.0); Calcium 8.5 MG/DL (8.5-10.1); Osmolality,Calculated 272.7 MOS/KG (273-304); Total Protein 7.6 G/DL (6.4-8.3)
[2019-05-28] MEDS: LACTATED RINGERS 1,000 ML IV SCH (08:08)
[2019-05-28] MEDS: PANTOPRAZOLE 40 MG VIAL IV SCH (08:08)
[2019-05-28] MEDS: FLUOROURACIL 1,500 MG in SODIUM CHLORIDE 0.9% 1,000 ML IV SCH (11:30)
[2019-05-29] MEDS: ONDANSETRON 4 MG/2 ML VIAL IV PRN (04:47)
[2019-05-29] MEDS: HYDROmorphone 2 MG/1 ML VIAL IV PRN ×7 (04:53→23:58)
[2019-05-29 05:37] LABS: Basophils # 0.1 10*3/uL (0.0-0.2); Basophils % 0.5 % (0.0-0.8); Eosinophils # 0.2 10*3/uL (0.0-0.87); Eosinophils % 1.9 % (0.00-10.9); Hematocrit 31.9 VOL% (35.7-47.0); Immature Granulocytes % 0.4 %; Immature Granulocytes Absolute 0.04 #; Lymphocytes # 0.8 10*3/uL (1.4-4.0); Lymphocytes % 7.6 % (21.3-54.2); Mean Corpuscular HGB Conc 31.3 GM/DL (32-36); Mean Corpuscular Volume 99.4 FL (87-102); Mean Platelet Volume 9.4 FL (9.6-12.0); Monocytes % 3.8 % (1.7-12.7); Neutrophils % 85.8 % (38.7-73.9); Platelet Count 430 T/CUMM (130-400); Red Blood Count 3.21 MC/CUMM (3.8-5.5); Red Cell Distribution Width 13.9 % (9.3-17.3); White Blood Count 10.1 T/CUMM (4-12)
[2019-05-29 06:11] LABS: Albumin 1.9 G/DL (3.4-5.0); Bilirubin,Total 3.2 MG/DL (0.2-1.0); Calcium 8.4 MG/DL (8.5-10.1); Osmolality,Calculated 277.3 MOS/KG (273-304); Total Protein 6.9 G/DL (6.4-8.3)
[2019-05-29] MEDS: PANTOPRAZOLE 40 MG VIAL IV SCH (08:06)
[2019-05-29] MEDS: LACTATED RINGERS 1,000 ML IV SCH (11:36)
[2019-05-30] MEDS: HYDROmorphone 2 MG/1 ML VIAL IV PRN ×6 (03:49→20:29)
[2019-05-30 05:07] LABS: Basophils # 0.1 10*3/uL (0.0-0.2); Basophils % 0.5 % (0.0-0.8); Eosinophils # 0.2 10*3/uL (0.0-0.87); Eosinophils % 2.4 % (0.00-10.9); Hematocrit 31.7 VOL% (35.7-47.0); Hemoglobin 10.2 GM/DL (12.0-16.0); Immature Granulocytes % 0.5 %; Immature Granulocytes Absolute 0.05 #; Lymphocytes # 0.7 10*3/uL (1.4-4.0); Lymphocytes % 7.8 % (21.3-54.2); Mean Corpuscular HGB Conc 32.2 GM/DL (32-36); Mean Corpuscular Volume 98.8 FL (87-102); Mean Platelet Volume 9.1 FL (9.6-12.0); Monocytes % 5.2 % (1.7-12.7); Neutrophils % 83.6 % (38.7-73.9); Platelet Count 399 T/CUMM (130-400); Red Blood Count 3.21 MC/CUMM (3.8-5.5); Red Cell Distribution Width 13.8 % (9.3-17.3); White Blood Count 9.5 T/CUMM (4-12)
[2019-05-30 05:21] LABS: Bilirubin,Total 4.1 MG/DL (0.2-1.0); Calcium 8.4 MG/DL (8.5-10.1); Osmolality,Calculated 275.5 MOS/KG (273-304)
[2019-05-30] MEDS ORDERED: MAGNESIUM SULF RIDER 2 GM in PREMIX 1 EACH IV ONE (07:39)
[2019-05-30] MEDS: POTASSIUM CHLORIDE RIDER 10 MEQ in PREMIX 1 EACH IV SCH ×2 (07:59→10:42)
[2019-05-30] MEDS: PANTOPRAZOLE 40 MG VIAL IV SCH (08:05)
[2019-05-30] MEDS: ONDANSETRON 4 MG/2 ML VIAL IV PRN (20:35)
[2019-05-30] MEDS ORDERED: NICOTINE 21 MG/24 HR PATCH TRANSDERM SCH (21:30)
[2019-05-31] MEDS: HYDROmorphone 2 MG/1 ML VIAL IV PRN ×4 (00:48→14:06)
[2019-05-31] MEDS: ONDANSETRON 4 MG/2 ML VIAL IV PRN (04:44)
[2019-05-31 04:58] LABS: Basophils % 0.4 % (0.0-0.8); Eosinophils # 0.3 10*3/uL (0.0-0.87); Eosinophils % 3.4 % (0.00-10.9); Hematocrit 30.7 VOL% (35.7-47.0); Hemoglobin 9.9 GM/DL (12.0-16.0); Immature Granulocytes % 0.5 %; Immature Granulocytes Absolute 0.05 #; Lymphocytes # 0.7 10*3/uL (1.4-4.0); Lymphocytes % 7.3 % (21.3-54.2); Mean Corpuscular HGB Conc 32.2 GM/DL (32-36); Mean Corpuscular Volume 98.7 FL (87-102); Mean Platelet Volume 9.2 FL (9.6-12.0); Monocytes % 5.7 % (1.7-12.7); Neutrophils % 82.7 % (38.7-73.9); Platelet Count 346 T/CUMM (130-400); Red Blood Count 3.11 MC/CUMM (3.8-5.5); Red Cell Distribution Width 13.4 % (9.3-17.3); White Blood Count 10.1 T/CUMM (4-12)
[2019-05-31 05:32] LABS: Albumin 1.9 G/DL (3.4-5.0); Bilirubin,Total 3.2 MG/DL (0.2-1.0); Calcium 8.5 MG/DL (8.5-10.1)
[2019-05-31] MEDS: PANTOPRAZOLE 40 MG VIAL IV SCH (08:04)
[2019-05-31] MEDS: LACTATED RINGERS 1,000 ML IV SCH (08:08)
[2019-05-31] MEDS ORDERED: chlorproMAZINE INJ 25 MG in SODIUM CHLORIDE 0.9% 100 ML IV ONE (09:45)
[2019-05-31 12:45] VITALS: BP 108/60
[2019-05-31] MEDS ORDERED: HEPARIN LOCK FLUSH 500 UNIT/5 ML SYRINGE IV ONE ×2 (14:03→14:05)
[2019-05-31] MEDS ORDERED: NICOTINE 21 MG/24 HR PATCH TRANSDERM SCH (21:00)
== END 2019-05-31 15:44 | disposition home or self-care (01) | DRG 445 ==
LOC: SUATTDRO 11:44 → N.4E 11:44
PROVIDERS: ADMIT Internal Medicine; ATTEND Internal Medicine
PROC: ERCPWSP (ICD-10-PCS; 2019-05-23 09:05)

== ENCOUNTER 2019-07-08 13:28 | Inpatient (IN) ==
[2019-07-08] MEDS ORDERED: HYDROmorphone 2 MG/1 ML VIAL IV STA (14:45)
[2019-07-08] MEDS ORDERED: SODIUM CHLORIDE 0.9% 500 ML IV STA (14:45)
[2019-07-08] MEDS ORDERED: ONDANSETRON 4 MG/2 ML VIAL IV STA (14:45)
[2019-07-08] MEDS ORDERED: PIPERACILLIN/TAZOBACTAM 3,375 MG in SODIUM CHLORIDE 0.9% 100 ML IV STA (14:45)
[2019-07-08 15:05] LABS: Basophils # 0.1 10*3/uL (0.0-0.2); Basophils % 0.7 % (0.0-0.8); Eosinophils # 0.1 10*3/uL (0.0-0.87); Eosinophils % 1.6 % (0.00-10.9); Hematocrit 27.5 VOL% (35.7-47.0); Hemoglobin 9.2 GM/DL (12.0-16.0); Immature Granulocytes % 1.5 %; Immature Granulocytes Absolute 0.12 #; Lymphocytes # 0.6 10*3/uL (1.4-4.0); Lymphocytes % 7.4 % (21.3-54.2); Mean Corpuscular HGB Conc 33.5 GM/DL (32-36); Mean Corpuscular Volume 94.5 FL (87-102); Mean Platelet Volume 8.8 FL (9.6-12.0); Monocytes % 18.7 % (1.7-12.7); Neutrophils % 70.1 % (38.7-73.9); Platelet Count 431 T/CUMM (130-400); Red Blood Count 2.91 MC/CUMM (3.8-5.5); Red Cell Distribution Width 14.3 % (9.3-17.3)
[2019-07-08 15:21] LABS: INR 1.4; PT Patient Result 14.9 SECS (9.6-12.2)
[2019-07-08 15:23] LABS: Alanine Aminotransferase 9 U/L (13-56); Albumin 1.5 G/DL (3.4-5.0); Alkaline Phosphatase 196 U/L (45-117); Aspartate Amino Transferase 15 U/L (0-37); Blood Urea Nitrogen 8 MG/DL (7-18); Calcium 7.4 MG/DL (8.5-10.1); Estimated Glom Filtration Rate 107 ML/MIN; Glucose 158 MG/DL (74-106); Osmolality,Calculated 273.8 MOS/KG (273-304); Total Protein 5.8 G/DL (6.4-8.3)
[2019-07-08] MEDS ORDERED: SODIUM CHLORIDE 0.9% 2,600 ML IV ONE (15:28)
[2019-07-08 15:31] LABS: Amylase 10 U/L (25-115)
[2019-07-08 15:33] LABS: Band Neutrophils 4 % (0-10); Eosinophils 1 % (0-10); Lymphocytes 20 % (20-55); Metamyelocytes 1 %; Myelocytes 2 %; Platelet Estimate Increased; Polychromasia Slight; Segmented Neutrophils 71 % (50-85); Total Cells Counted 100
[2019-07-08] MEDS ORDERED: POTASSIUM CHLORIDE 20 MEQ TABLET PO STA (16:24)
[2019-07-08] MEDS ORDERED: ACETAMINOPHEN 325 MG TABLET PO PRN (17:10)
[2019-07-08] MEDS ORDERED: ONDANSETRON 4 MG/2 ML VIAL IV PRN (17:10)
[2019-07-08 17:39] LABS: Apearance,Urine CLEAR (Clear); Bacteria,Urine Occasional /HPF (Few); Bilirubin,Urine Negative (Negative); Blood, Urine Small mg/dL (Negative); Glucose,Urine (UA) Negative (Negative); Ketones,Urine Negative (Negative); Mucus,Urine Occasional /LPF (Occasional); Nitrite,Urine Negative (Negative); Protein,Urine Negative; RBC,Urine 2 /HPF (0-4); Squamous Epithelial Cell,Urine Occasional /HPF (0-10); Urine Color Yellow (Yellow); Urine Specific Gravity 1.008 (1.001-1.035); Urine Urobilinogen < 2.0 EU/DL (0.2-1.0); WBC,Urine 22 /HPF (0-6)
[2019-07-08 18:10] LABS: Hematocrit 22.8 VOL% (35.7-47.0); Hemoglobin 7.6 GM/DL (12.0-16.0)
[2019-07-08 18:42] LABS: % Iron Saturation 12.6 % (18-50); Ferritin 552.6 ng/ml (8-252)
[2019-07-08] MEDS: HYDROmorphone 2 MG/1 ML VIAL IV PRN (19:36)
[2019-07-08] MEDS: oxyCODONE IR 5 MG TABLET PO PRN (21:31)
[2019-07-08] MEDS: PIPERACILLIN/TAZOBACTAM 3,375 MG in SODIUM CHLORIDE 0.9% 100 ML IV SCH (21:31)
[2019-07-08] MEDS: PANTOPRAZOLE 40 MG VIAL IV SCH (21:32)
[2019-07-09] MEDS: HYDROmorphone 2 MG/1 ML VIAL IV PRN ×5 (00:56→21:22)
[2019-07-09 00:58] LABS: Basophils % 0.5 % (0.0-0.8); Eosinophils # 0.2 10*3/uL (0.0-0.87); Hematocrit 23.3 VOL% (35.7-47.0); Hemoglobin 7.9 GM/DL (12.0-16.0); Immature Granulocytes % 1.6 %; Immature Granulocytes Absolute 0.13 #; Lymphocytes # 0.5 10*3/uL (1.4-4.0); Lymphocytes % 6.6 % (21.3-54.2); Mean Corpuscular HGB Conc 33.9 GM/DL (32-36); Mean Platelet Volume 8.8 FL (9.6-12.0); Monocytes % 15.9 % (1.7-12.7); Neutrophils % 73.4 % (38.7-73.9); Platelet Count 366 T/CUMM (130-400); Red Blood Count 2.48 MC/CUMM (3.8-5.5); Red Cell Distribution Width 14.3 % (9.3-17.3)
[2019-07-09 01:08] LABS: INR 1.4; PT Patient Result 14.7 SECS (9.6-12.2); Partial Thromboplastin Time 34.8 SECS (20.8-36.0)
[2019-07-09 01:21] LABS: Alanine Aminotransferase < 9 U/L (13-56); Albumin 1.3 G/DL (3.4-5.0); Alkaline Phosphatase 167 U/L (45-117); Aspartate Amino Transferase 16 U/L (0-37); Blood Urea Nitrogen 7 MG/DL (7-18); Calcium 7.2 MG/DL (8.5-10.1); Estimated Glom Filtration Rate 110 ML/MIN; Glucose 150 MG/DL (74-106); Osmolality,Calculated 279.4 MOS/KG (273-304); Total Protein 5.4 G/DL (6.4-8.3)
[2019-07-09 01:32] LABS: Risk Ratio 7.27
[2019-07-09 01:45] LABS: Band Neutrophils 9 % (0-10); Eosinophils 2 % (0-10); Lymphocytes 6 % (20-55); Metamyelocytes 2 %; Promyelocytes 1 %; Segmented Neutrophils 65 % (50-85); Total Cells Counted 100
[2019-07-09] MEDS ORDERED: MAGNESIUM SULF RIDER 2 GM in PREMIX 1 EACH IV ONE (01:53)
[2019-07-09] MEDS ORDERED: POTASSIUM CHLORIDE RIDER 10 MEQ in PREMIX 1 EACH IV PRN ×2 (01:56→08:18)
[2019-07-09 02:00] LABS: Burr Cells Few; Hypochromasia Slight; Platelet Estimate Increased
[2019-07-09 02:01] LABS: Polychromasia Few
[2019-07-09] MEDS: POTASSIUM CHLORIDE RIDER 20 MEQ in PREMIX 1 EACH IV PRN ×3 (02:19→06:23)
[2019-07-09 05:44] LABS: Hematocrit 25.6 VOL% (35.7-47.0); Hemoglobin 8.4 GM/DL (12.0-16.0)
[2019-07-09] MEDS: PIPERACILLIN/TAZOBACTAM 3,375 MG in SODIUM CHLORIDE 0.9% 100 ML IV SCH ×3 (06:22→21:09)
[2019-07-09] MEDS: oxyCODONE IR 5 MG TABLET PO PRN ×2 (06:27→14:11)
[2019-07-09] MEDS ORDERED: MAGNESIUM SULF RIDER 2 GM in PREMIX 1 EACH IV PRN (07:15)
[2019-07-09] MEDS ORDERED: MAGNESIUM SULF RIDER 4 GM in PREMIX 1 EACH IV PRN (07:15)
[2019-07-09] MEDS: PANTOPRAZOLE 40 MG VIAL IV SCH ×2 (08:34→21:09)
[2019-07-09] MEDS ORDERED: PANTOPRAZOLE 40 MG TABLET PO SCH (09:00)
[2019-07-09] MEDS: POTASSIUM CHLORIDE INJ 10 MEQ in SODIUM CHLORIDE 0.9% 1,000 ML IV SCH ×2 (10:59→23:34)
[2019-07-09] MEDS ORDERED: DEXAMETHASONE 10 MG/1 ML VIAL IV ONE (11:00)
[2019-07-09] MEDS ORDERED: LEUCOVORIN INJ 700 MG in DEXTROSE 5% 250 ML IV ONE (11:00)
[2019-07-09] MEDS ORDERED: GRANISETRON 1 MG/1 ML VIAL IV ONE (11:00)
[2019-07-09] MEDS ORDERED: FLUOROURACIL 800 MG in SYRINGE 1 EACH IV ONE (11:00)
[2019-07-09] MEDS: FLUOROURACIL 2,000 MG in SODIUM CHLORIDE 0.9% 1,000 ML IV SCH (16:53)
[2019-07-09] MEDS: POTASSIUM CHLORIDE 20 MEQ TABLET PO PRN (23:43)
[2019-07-10] MEDS: POTASSIUM CHLORIDE 20 MEQ TABLET PO PRN ×5 (01:28→20:32)
[2019-07-10 01:49] LABS: Basophils % 0.4 % (0.0-0.8); Hematocrit 27.4 VOL% (35.7-47.0); Immature Granulocytes % 2.1 %; Immature Granulocytes Absolute 0.21 #; Lymphocytes # 0.4 10*3/uL (1.4-4.0); Lymphocytes % 3.7 % (21.3-54.2); Mean Corpuscular HGB Conc 32.8 GM/DL (32-36); Mean Corpuscular Volume 95.8 FL (87-102); Mean Platelet Volume 9.1 FL (9.6-12.0); Monocytes % 4.1 % (1.7-12.7); Neutrophils % 89.7 % (38.7-73.9); Platelet Count 320 T/CUMM (130-400); Red Blood Count 2.86 MC/CUMM (3.8-5.5); Red Cell Distribution Width 14.6 % (9.3-17.3); White Blood Count 10.2 T/CUMM (4-12)
[2019-07-10 02:31] LABS: Calcium 7.8 MG/DL (8.5-10.1); Osmolality,Calculated 281.4 MOS/KG (273-304)
[2019-07-10 03:25] LABS: Lymphocytes 6 % (20-55); Platelet Estimate Normal; Polychromasia Slight; Segmented Neutrophils 92 % (50-85); Total Cells Counted 100
[2019-07-10] MEDS: PIPERACILLIN/TAZOBACTAM 3,375 MG in SODIUM CHLORIDE 0.9% 100 ML IV SCH ×3 (05:37→22:05)
[2019-07-10] MEDS: POTASSIUM CHLORIDE INJ 10 MEQ in SODIUM CHLORIDE 0.9% 1,000 ML IV SCH (05:37)
[2019-07-10] MEDS: PANTOPRAZOLE 40 MG VIAL IV SCH ×2 (09:02→20:20)
[2019-07-10] MEDS: HYDROmorphone 2 MG/1 ML VIAL IV PRN ×3 (09:07→20:35)
[2019-07-10] MEDS ORDERED: DEXTROSE 5% IV ONE ×2 (11:25→11:35)
[2019-07-10] MEDS ORDERED: OXALIPLATIN IV ONE ×2 (11:25→11:35)
[2019-07-10] MEDS ORDERED: FAMOTIDINE 20 MG/2 ML VIAL IV SCH (11:30)
[2019-07-10] MEDS ORDERED: methylPREDNISolone SOD SUC 40 MG/1 ML VIAL IV SCH ×2 (11:30→12:00)
[2019-07-10] MEDS ORDERED: diphenhydrAMINE 50 MG/1 ML VIAL IV SCH ×2 (11:30→12:00)
[2019-07-10] MEDS ORDERED: FAMOTIDINE INJ 40 MG in SODIUM CHLORIDE 0.9% 100 ML IV ONE (11:32)
[2019-07-10] MEDS: FLUOROURACIL 2,000 MG in SODIUM CHLORIDE 0.9% 1,000 ML IV SCH (20:25)
[2019-07-11] MEDS: HYDROmorphone 2 MG/1 ML VIAL IV PRN ×4 (03:00→17:56)
[2019-07-11 03:46] LABS: Basophils % 0.2 % (0.0-0.8); Hematocrit 28.3 VOL% (35.7-47.0); Immature Granulocytes % 1.6 %; Immature Granulocytes Absolute 0.21 #; Lymphocytes # 0.6 10*3/uL (1.4-4.0); Lymphocytes % 4.3 % (21.3-54.2); Mean Corpuscular HGB Conc 31.8 GM/DL (32-36); Mean Corpuscular Volume 96.3 FL (87-102); Mean Platelet Volume 9.2 FL (9.6-12.0); Monocytes % 2.8 % (1.7-12.7); Neutrophils % 91.1 % (38.7-73.9); Platelet Count 371 T/CUMM (130-400); Red Blood Count 2.94 MC/CUMM (3.8-5.5); Red Cell Distribution Width 14.9 % (9.3-17.3); White Blood Count 12.9 T/CUMM (4-12)
[2019-07-11 04:08] LABS: Calcium 8.1 MG/DL (8.5-10.1); Osmolality,Calculated 294.1 MOS/KG (273-304)
[2019-07-11 04:49] LABS: Band Neutrophils 3 % (0-10); Lymphocytes 5 % (20-55); Platelet Estimate Normal; Segmented Neutrophils 89 % (50-85); Total Cells Counted 100
[2019-07-11] MEDS: PIPERACILLIN/TAZOBACTAM 3,375 MG in SODIUM CHLORIDE 0.9% 100 ML IV SCH ×2 (05:50→14:53)
[2019-07-11] MEDS: oxyCODONE IR 5 MG TABLET PO PRN (08:01)
[2019-07-11] MEDS: PANTOPRAZOLE 40 MG VIAL IV SCH (08:02)
[2019-07-11] MEDS: POTASSIUM CHLORIDE INJ 10 MEQ in SODIUM CHLORIDE 0.9% 1,000 ML IV SCH ×3 (09:38→13:21)
[2019-07-11 16:44] VITALS: BP 103/71
[2019-07-11] MEDS ORDERED: HEPARIN LOCK FLUSH 500 UNIT/5 ML SYRINGE IV ONE (18:41)
== END 2019-07-11 19:23 | disposition home health service (06) | DRG 240 ==
LOC: N.ED 13:28 → N.EDINP 17:09 → N.4E 18:25
PROVIDERS: ADMIT Internal Medicine; ATTEND Internal Medicine

== ENCOUNTER 2019-07-15 20:48 | Inpatient (IN) ==
[2019-07-15] MEDS ORDERED: fentaNYL 100 MCG/2 ML VIAL IV STA (21:21)
[2019-07-15] MEDS ORDERED: ONDANSETRON 4 MG/2 ML VIAL IV STA ×3 (21:21→22:07)
[2019-07-15] MEDS ORDERED: PIPERACILLIN/TAZOBACTAM 3,375 MG in SODIUM CHLORIDE 0.9% 100 ML IV STA (21:21)
[2019-07-15] MEDS ORDERED: SODIUM CHLORIDE 0.9% 1,000 ML IV STA (21:21)
[2019-07-15] MEDS ORDERED: METOCLOPRAMIDE 10 MG/2 ML VIAL IV STA (22:07)
[2019-07-15 22:34] LABS: Basophils % 0.1 % (0.0-0.8); Eosinophils % 0.3 % (0.00-10.9); Hematocrit 21.9 VOL% (35.7-47.0); Immature Granulocytes % 1.6 %; Immature Granulocytes Absolute 0.24 #; Lymphocytes # 0.4 10*3/uL (1.4-4.0); Lymphocytes % 2.7 % (21.3-54.2); Mean Corpuscular Volume 96.1 FL (87-102); Mean Platelet Volume 9.9 FL (9.6-12.0); Monocytes % 0.7 % (1.7-12.7); Neutrophils % 94.6 % (38.7-73.9); Platelet Count 123 T/CUMM (130-400); Red Blood Count 2.28 MC/CUMM (3.8-5.5); Red Cell Distribution Width 14.1 % (9.3-17.3); White Blood Count 15.3 T/CUMM (4-12)
[2019-07-15 22:45] LABS: INR 1.3; PT Patient Result 13.7 SECS (9.6-12.2)
[2019-07-15 22:57] LABS: Alanine Aminotransferase 9 U/L (13-56); Albumin 1.4 G/DL (3.4-5.0); Alkaline Phosphatase 204 U/L (45-117); Aspartate Amino Transferase 21 U/L (0-37); Blood Urea Nitrogen 7 MG/DL (7-18); Calcium 7.6 MG/DL (8.5-10.1); Estimated Glom Filtration Rate 140 ML/MIN; Glucose 87 MG/DL (74-106); Osmolality,Calculated 273.5 MOS/KG (273-304); Total Protein 5.7 G/DL (6.4-8.3); Troponin I < 0.015 NG/ML (0.00-0.045)
[2019-07-15 23:13] LABS: Band Neutrophils 3 % (0-10); Lymphocytes 4 % (20-55); Segmented Neutrophils 92 % (50-85); Total Cells Counted 100
[2019-07-15 23:14] LABS: Anisocytosis Slight; Microcytosis Slight
[2019-07-15 23:15] LABS: Platelet Estimate Adequate; Tear Drop Cells Few
[2019-07-16] MEDS: SODIUM CHLORIDE 0.9% 1,000 ML IV SCH ×2 (01:23→17:16)
[2019-07-16] MEDS: fentaNYL 100 MCG/2 ML VIAL IV PRN ×3 (01:23→05:33)
[2019-07-16] MEDS ORDERED: PIPERACILLIN/TAZOBACTAM 3,375 MG in SODIUM CHLORIDE 0.9% 100 ML IV SCH (06:00)
[2019-07-16] MEDS ORDERED: ENOXAPARIN 40 MG/0.4 ML SYRINGE SUBCUT SCH (07:00)
[2019-07-16] MEDS: HYDROmorphone 2 MG/1 ML VIAL IV PRN ×4 (10:24→23:51)
[2019-07-16] MEDS: ONDANSETRON 4 MG/2 ML VIAL IV PRN (10:25)
[2019-07-16] MEDS ORDERED: SODIUM CHLORIDE 0.9% 2,700 ML IV ONE (11:15)
[2019-07-16] MEDS ORDERED: SODIUM CHLORIDE 0.9% 1,000 ML IV PRN (11:18)
[2019-07-16] MEDS ORDERED: LIDOCAINE 1%/EPI INJ 20 ML VIAL ONE (12:05)
[2019-07-16] MEDS ORDERED: BUPIVACAINE MPF 0.25% 30 ML VIAL ONE (12:05)
[2019-07-16] MEDS ORDERED: ONDANSETRON 4 MG/2 ML VIAL ONE (13:00)
[2019-07-16] MEDS ORDERED: SEVOFLURANE 1 UNIT/15 MINUTE INH ONE (13:00)
[2019-07-16] MEDS ORDERED: LIDOCAINE 2% 5 ML VIAL ONE (13:00)
[2019-07-16] MEDS ORDERED: PROPOFOL 200 MG/20 ML VIAL IV ONE (13:00)
[2019-07-16] MEDS ORDERED: MIDAZOLAM 2 MG/2 ML VIAL ONE (13:00)
[2019-07-16] MEDS ORDERED: fentaNYL 100 MCG/2 ML VIAL ONE (13:00)
[2019-07-16] MEDS ORDERED: PHENYLEPHRINE 1 MG/10 ML SYRINGE IV ONE (13:01)
[2019-07-16] MEDS ORDERED: HYDROmorphone 2 MG/1 ML VIAL IV PRN (13:12)
[2019-07-16] MEDS ORDERED: HYDROmorphone 2 MG/1 ML VIAL ONE (13:13)
[2019-07-16] MEDS: PIPERACILLIN/TAZOBACTAM 3,375 MG in SODIUM CHLORIDE 0.9% 100 ML IV SCH ×2 (17:15→19:34)
[2019-07-16 18:23] LABS: Apearance,Urine CLEAR (Clear); Bacteria,Urine Occasional /HPF (Few); Bilirubin,Urine Negative (Negative); Blood, Urine Large mg/dL (Negative); Glucose,Urine (UA) Negative (Negative); Hyaline Casts,Urine 3 /LPF (0-3); Ketones,Urine Negative (Negative); Mucus,Urine Occasional /LPF (Occasional); Nitrite,Urine Negative (Negative); Protein,Urine 100 MG/DL; RBC,Urine 1 /HPF (0-4); Squamous Epithelial Cell,Urine Occasional /HPF (0-10); Urine Color Amber (Yellow); WBC,Urine 44 /HPF (0-6)
[2019-07-16] MEDS: POTASSIUM CHLORIDE RIDER 10 MEQ in PREMIX 1 EACH IV PRN ×4 (19:34→23:44)
[2019-07-17] MEDS: POTASSIUM CHLORIDE RIDER 10 MEQ in PREMIX 1 EACH IV PRN (00:15)
[2019-07-17] MEDS: HYDROmorphone 2 MG/1 ML VIAL IV PRN ×7 (02:43→23:40)
[2019-07-17] MEDS: PIPERACILLIN/TAZOBACTAM 3,375 MG in SODIUM CHLORIDE 0.9% 100 ML IV SCH ×3 (06:11→19:51)
[2019-07-17 07:37] LABS: Basophils % 0.1 % (0.0-0.8); Eosinophils # 0.1 10*3/uL (0.0-0.87); Eosinophils % 1.3 % (0.00-10.9); Hemoglobin 8.1 GM/DL (12.0-16.0); Lymphocytes # 0.5 10*3/uL (1.4-4.0); Lymphocytes % 4.9 % (21.3-54.2); Mean Corpuscular HGB Conc 33.8 GM/DL (32-36); Mean Corpuscular Volume 94.9 FL (87-102); Mean Platelet Volume 10.3 FL (9.6-12.0); Monocytes % 1.6 % (1.7-12.7); Neutrophils % 91.1 % (38.7-73.9); Red Blood Count 2.53 MC/CUMM (3.8-5.5); White Blood Count 9.7 T/CUMM (4-12)
[2019-07-17 07:40] LABS: Platelet Count 77 T/CUMM (130-400)
[2019-07-17] MEDS: SODIUM CHLORIDE 0.9% 1,000 ML IV SCH ×3 (07:45→18:42)
[2019-07-17 08:03] LABS: Eosinophils 2 % (0-10); Lymphocytes 3 % (20-55); Platelet Estimate Decreased; Segmented Neutrophils 93 % (50-85); Total Cells Counted 100
[2019-07-17 08:04] LABS: Hypochromasia 1+; Microcytosis Slight; Ovalocytes Slight
[2019-07-17 08:20] LABS: Alanine Aminotransferase < 9 U/L (13-56); Albumin 1.2 G/DL (3.4-5.0); Alkaline Phosphatase 174 U/L (45-117); Aspartate Amino Transferase 17 U/L (0-37); Blood Urea Nitrogen 4 MG/DL (7-18); Calcium 7.3 MG/DL (8.5-10.1); Estimated Glom Filtration Rate 154 ML/MIN; Glucose 89 MG/DL (74-106); Osmolality,Calculated 276.3 MOS/KG (273-304)
[2019-07-17] MEDS ORDERED: MAGNESIUM SULF RIDER 4 GM in PREMIX 1 EACH IV PRN (09:02)
[2019-07-17] MEDS: MAGNESIUM OXIDE 400 MG TABLET PO SCH ×2 (09:40→22:27)
[2019-07-17] MEDS: POTASSIUM CHLORIDE 20 MEQ TABLET PO SCH (09:40)
[2019-07-17] MEDS: SODIUM HYPOCHLORITE 0.25% IRRIG 473 ML BOTTLE TOP SCH (14:11)
[2019-07-18] MEDS: PIPERACILLIN/TAZOBACTAM 3,375 MG in SODIUM CHLORIDE 0.9% 100 ML IV SCH ×3 (03:13→21:50)
[2019-07-18] MEDS: SODIUM CHLORIDE 0.9% 1,000 ML IV SCH ×2 (03:18→08:34)
[2019-07-18] MEDS: HYDROmorphone 2 MG/1 ML VIAL IV PRN ×5 (03:19→21:25)
[2019-07-18 05:05] LABS: Calcium 7.2 MG/DL (8.5-10.1); Osmolality,Calculated 278.1 MOS/KG (273-304)
[2019-07-18] MEDS: POTASSIUM CHLORIDE 20 MEQ TABLET PO SCH (08:16)
[2019-07-18] MEDS: MAGNESIUM OXIDE 400 MG TABLET PO SCH ×2 (08:16→21:29)
[2019-07-18] MEDS: SODIUM HYPOCHLORITE 0.25% IRRIG 473 ML BOTTLE TOP SCH (09:10)
[2019-07-18] MEDS: POTASSIUM CHLORIDE RIDER 10 MEQ in PREMIX 1 EACH IV PRN ×5 (09:11→17:22)
[2019-07-18] MEDS: SODIUM CHLOR 0.9% KCL 40 MEQ 40 MEQ/1,000 ML BAG IV SCH ×2 (10:47→17:44)
[2019-07-18] MEDS: MAGNESIUM SULF RIDER 2 GM in PREMIX 1 EACH IV PRN (15:04)
[2019-07-19] MEDS: HYDROmorphone 2 MG/1 ML VIAL IV PRN ×11 (00:16→21:29)
[2019-07-19] MEDS: SODIUM CHLOR 0.9% KCL 40 MEQ 40 MEQ/1,000 ML BAG IV SCH ×3 (02:00→17:42)
[2019-07-19] MEDS: PIPERACILLIN/TAZOBACTAM 3,375 MG in SODIUM CHLORIDE 0.9% 100 ML IV SCH (05:20)
[2019-07-19] MEDS: CIPROFLOXACIN INJ 400 MG in PREMIX 1 EACH IV SCH ×2 (09:35→20:38)
[2019-07-19] MEDS: POTASSIUM CHLORIDE 20 MEQ TABLET PO SCH (09:35)
[2019-07-19] MEDS: MAGNESIUM OXIDE 400 MG TABLET PO SCH ×2 (09:35→20:31)
[2019-07-19] MEDS: SODIUM HYPOCHLORITE 0.25% IRRIG 473 ML BOTTLE TOP SCH (09:50)
[2019-07-19] MEDS ORDERED: LIDOCAINE 1%/EPI INJ 20 ML VIAL ONE (10:25)
[2019-07-19] MEDS ORDERED: BUPIVACAINE 0.5% 50 ML VIAL ONE (10:25)
[2019-07-19] MEDS ORDERED: HYDROmorphone 2 MG/1 ML VIAL ONE (12:30)
[2019-07-19] MEDS ORDERED: ONDANSETRON 4 MG/2 ML VIAL IV PRN (12:30)
[2019-07-19] MEDS ORDERED: ONDANSETRON 4 MG/2 ML VIAL ONE (12:30)
[2019-07-19] MEDS ORDERED: SEVOFLURANE 1 UNIT/15 MINUTE INH ONE (12:33)
[2019-07-19] MEDS ORDERED: MIDAZOLAM 2 MG/2 ML VIAL ONE (12:34)
[2019-07-19] MEDS ORDERED: fentaNYL 100 MCG/2 ML VIAL ONE ×2 (12:34)
[2019-07-19] MEDS ORDERED: PHENYLEPHRINE 10 MG/1 ML VIAL IV ONE (12:35)
[2019-07-19] MEDS ORDERED: PHENYLEPHRINE 1 MG/10 ML SYRINGE IV ONE (12:35)
[2019-07-19] MEDS ORDERED: PROPOFOL 200 MG/20 ML VIAL IV ONE (12:35)
[2019-07-19] MEDS ORDERED: SODIUM CHLORIDE 0.9% 100 ML IV ONE (12:35)
[2019-07-19 12:48] LABS: Basophils % 0.9 % (0.0-0.8); Eosinophils % 2.6 % (0.00-10.9); Hematocrit 27.6 VOL% (35.7-47.0); Hemoglobin 8.5 GM/DL (12.0-16.0); Lymphocytes # 0.5 10*3/uL (1.4-4.0); Mean Corpuscular HGB Conc 30.8 GM/DL (32-36); Mean Corpuscular Volume 98.2 FL (87-102); Mean Platelet Volume 9.8 FL (9.6-12.0); Monocytes % 25.2 % (1.7-12.7); Neutrophils % 31.3 % (38.7-73.9); Platelet Count 127 T/CUMM (130-400); Red Blood Count 2.81 MC/CUMM (3.8-5.5); Red Cell Distribution Width 14.3 % (9.3-17.3); White Blood Count 1.2 T/CUMM (4-12)
[2019-07-19 12:58] LABS: INR 1.2; PT Patient Result 12.8 SECS (9.6-12.2); Partial Thromboplastin Time 35.9 SECS (20.8-36.0)
[2019-07-19 13:36] LABS: Anisocytosis 2+; Band Neutrophils 2 % (0-10); Eosinophils 3 % (0-10); Lymphocytes 43 % (20-55); Macrocytosis 2+; Microcytosis 1+; Segmented Neutrophils 28 % (50-85); Total Cells Counted 100
[2019-07-19 13:37] LABS: Platelet Estimate Normal
[2019-07-19] MEDS: MEROPENEM 500 MG in SODIUM CHLORIDE 0.9% 100 ML IV SCH ×2 (14:20→18:45)
[2019-07-20] MEDS: HYDROmorphone 2 MG/1 ML VIAL IV PRN ×8 (00:49→23:26)
[2019-07-20] MEDS: MEROPENEM 500 MG in SODIUM CHLORIDE 0.9% 100 ML IV SCH ×4 (01:21→18:18)
[2019-07-20] MEDS: SODIUM CHLOR 0.9% KCL 40 MEQ 40 MEQ/1,000 ML BAG IV SCH ×3 (03:05→21:07)
[2019-07-20 05:25] LABS: Calcium 6.8 MG/DL (8.5-10.1); Osmolality,Calculated 273.5 MOS/KG (273-304)
[2019-07-20 05:28] LABS: Alanine Aminotransferase < 6 U/L (13-56); Albumin 1.1 G/DL (3.4-5.0); Alkaline Phosphatase 154 U/L (45-117); Aspartate Amino Transferase 15 U/L (0-37); Blood Urea Nitrogen 4 MG/DL (7-18); Calcium 7.2 MG/DL (8.5-10.1); Estimated Glom Filtration Rate 143 ML/MIN; Glucose 88 MG/DL (74-106); Osmolality,Calculated 276.3 MOS/KG (273-304); Total Protein 5.1 G/DL (6.4-8.3)
[2019-07-20 05:30] LABS: Basophils % 1.8 % (0.0-0.8); Eosinophils % 2.7 % (0.00-10.9); Hematocrit 21.4 VOL% (35.7-47.0); Immature Granulocytes % 5.5 %; Immature Granulocytes Absolute 0.06 #; Lymphocytes # 0.4 10*3/uL (1.4-4.0); Lymphocytes % 36.4 % (21.3-54.2); Mean Corpuscular HGB Conc 30.8 GM/DL (32-36); Mean Corpuscular Volume 97.3 FL (87-102); Mean Platelet Volume 9.9 FL (9.6-12.0); Monocytes % 37.3 % (1.7-12.7); Neutrophils % 16.3 % (38.7-73.9); Platelet Count 159 T/CUMM (130-400); Red Cell Distribution Width 14.6 % (9.3-17.3); White Blood Count 1.1 T/CUMM (4-12)
[2019-07-20 05:31] LABS: Hemoglobin 6.6 GM/DL (12.0-16.0)
[2019-07-20 05:48] LABS: Eosinophils 5 % (0-10); Lymphocytes 37 % (20-55); Metamyelocytes 2 %; Reactive Lymphocytes Few; Segmented Neutrophils 18 % (50-85); Total Cells Counted 100
[2019-07-20 05:49] LABS: Hypochromasia 1+; Platelet Estimate Normal
[2019-07-20 05:51] LABS: Polychromasia Few
[2019-07-20] MEDS ORDERED: SODIUM CHLORIDE 0.9% 1,000 ML IV PRN (07:15)
[2019-07-20] MEDS: MORPHINE ER 30 MG TABLET PO SCH ×2 (07:34→19:54)
[2019-07-20] MEDS ORDERED: SODIUM PHOSPHATE INJ 30 MMOL in SODIUM CHLORIDE 0.9% 250 ML IV ONE (08:00)
[2019-07-20] MEDS: MAGNESIUM OXIDE 400 MG TABLET PO SCH ×2 (08:41→21:05)
[2019-07-20] MEDS: POTASSIUM CHLORIDE 20 MEQ TABLET PO SCH (08:41)
[2019-07-20] MEDS: CIPROFLOXACIN INJ 400 MG in PREMIX 1 EACH IV SCH ×2 (08:46→21:07)
[2019-07-20] MEDS: fentaNYL 12 MCG/HR PATCH TRANSDERM SCH (08:48)
[2019-07-20] MEDS: SODIUM HYPOCHLORITE 0.25% IRRIG 473 ML BOTTLE TOP SCH (10:25)
[2019-07-20 18:48] LABS: Hemoglobin 9.8 GM/DL (12.0-16.0)
[2019-07-21] MEDS: MEROPENEM 500 MG in SODIUM CHLORIDE 0.9% 100 ML IV SCH ×4 (00:38→18:30)
[2019-07-21] MEDS: HYDROmorphone 2 MG/1 ML VIAL IV PRN ×5 (02:19→23:43)
[2019-07-21 06:25] LABS: Basophils % 1.7 % (0.0-0.8); Eosinophils # 0.1 10*3/uL (0.0-0.87); Eosinophils % 3.5 % (0.00-10.9); Hematocrit 29.9 VOL% (35.7-47.0); Hemoglobin 9.8 GM/DL (12.0-16.0); Immature Granulocytes Absolute 0.07 #; Lymphocytes # 0.7 10*3/uL (1.4-4.0); Lymphocytes % 30.3 % (21.3-54.2); Mean Corpuscular HGB Conc 32.8 GM/DL (32-36); Mean Corpuscular Volume 90.9 FL (87-102); Mean Platelet Volume 9.5 FL (9.6-12.0); Monocytes % 36.4 % (1.7-12.7); NRBC # 0.02 10*3/uL; Neutrophils % 25.1 % (38.7-73.9); Platelet Count 195 T/CUMM (130-400); Red Blood Count 3.29 MC/CUMM (3.8-5.5); Red Cell Distribution Width 17.4 % (9.3-17.3); White Blood Count 2.3 T/CUMM (4-12)
[2019-07-21] MEDS ORDERED: LIDOCAINE 1% 20 ML VIAL ONE (06:32)
[2019-07-21] MEDS ORDERED: LIDOCAINE 1%/EPI INJ 20 ML VIAL ONE (06:32)
[2019-07-21] MEDS: SODIUM CHLOR 0.9% KCL 40 MEQ 40 MEQ/1,000 ML BAG IV SCH ×2 (06:41→14:38)
[2019-07-21 06:50] LABS: Alanine Aminotransferase < 6 U/L (13-56); Albumin 1.1 G/DL (3.4-5.0); Alkaline Phosphatase 177 U/L (45-117); Aspartate Amino Transferase 19 U/L (0-37); Blood Urea Nitrogen 4 MG/DL (7-18); Calcium 7.3 MG/DL (8.5-10.1); Estimated Glom Filtration Rate 154 ML/MIN; Glucose 70 MG/DL (74-106); Osmolality,Calculated 269.7 MOS/KG (273-304); Total Protein 5.3 G/DL (6.4-8.3)
[2019-07-21 06:59] LABS: Eosinophils 8 % (0-10); Hypochromasia Slight; Lymphocytes 40 % (20-55); Metamyelocytes 1 %; Myelocytes 1 %; Platelet Estimate Decreased; Segmented Neutrophils 27 % (50-85); Total Cells Counted 100
[2019-07-21] MEDS ORDERED: HYDROmorphone 2 MG/1 ML VIAL ONE (07:31)
[2019-07-21] MEDS ORDERED: MIDAZOLAM 2 MG/2 ML VIAL ONE (08:45)
[2019-07-21] MEDS ORDERED: ONDANSETRON 4 MG/2 ML VIAL ONE (08:45)
[2019-07-21] MEDS ORDERED: PROPOFOL 200 MG/20 ML VIAL IV ONE (08:45)
[2019-07-21] MEDS ORDERED: LIDOCAINE 2% 5 ML VIAL ONE (08:45)
[2019-07-21] MEDS ORDERED: fentaNYL 100 MCG/2 ML VIAL ONE (08:45)
[2019-07-21] MEDS ORDERED: SEVOFLURANE 1 UNIT/15 MINUTE INH ONE (08:45)
[2019-07-21] MEDS: SODIUM HYPOCHLORITE 0.25% IRRIG 473 ML BOTTLE TOP SCH (08:52)
[2019-07-21] MEDS: MORPHINE ER 30 MG TABLET PO SCH ×2 (09:33→19:58)
[2019-07-21] MEDS: MAGNESIUM OXIDE 400 MG TABLET PO SCH ×2 (09:34→21:18)
[2019-07-21] MEDS: FILGRASTIM-SNDZ 300 MCG/0.5 ML SYRINGE SUBCUT SCH (09:34)
[2019-07-21] MEDS: POTASSIUM CHLORIDE 20 MEQ TABLET PO SCH (09:34)
[2019-07-21] MEDS: CIPROFLOXACIN INJ 400 MG in PREMIX 1 EACH IV SCH ×2 (09:34→21:18)
[2019-07-21] MEDS: MAGNESIUM SULF RIDER 2 GM in PREMIX 1 EACH IV PRN (16:34)
[2019-07-22] MEDS: MEROPENEM 500 MG in SODIUM CHLORIDE 0.9% 100 ML IV SCH ×2 (00:25→06:40)
[2019-07-22] MEDS: SODIUM CHLOR 0.9% KCL 40 MEQ 40 MEQ/1,000 ML BAG IV SCH ×3 (02:44→14:51)
[2019-07-22] MEDS: HYDROmorphone 2 MG/1 ML VIAL IV PRN ×7 (04:28→23:16)
[2019-07-22 05:55] LABS: Basophils # 0.1 10*3/uL (0.0-0.2); Basophils % 0.6 % (0.0-0.8); Eosinophils # 0.1 10*3/uL (0.0-0.87); Eosinophils % 1.2 % (0.00-10.9); Hematocrit 31.9 VOL% (35.7-47.0); Hemoglobin 10.2 GM/DL (12.0-16.0); Immature Granulocytes % 8.8 %; Immature Granulocytes Absolute 0.71 #; Mean Corpuscular Volume 92.5 FL (87-102); Mean Platelet Volume 9.7 FL (9.6-12.0); Monocytes % 17.1 % (1.7-12.7); Neutrophils % 60.3 % (38.7-73.9); Platelet Count 229 T/CUMM (130-400); Red Blood Count 3.45 MC/CUMM (3.8-5.5); Red Cell Distribution Width 17.3 % (9.3-17.3); White Blood Count 8.1 T/CUMM (4-12)
[2019-07-22 06:13] LABS: Alanine Aminotransferase < 9 U/L (13-56); Albumin 1.2 G/DL (3.4-5.0); Alkaline Phosphatase 216 U/L (45-117); Aspartate Amino Transferase 19 U/L (0-37); Blood Urea Nitrogen 3 MG/DL (7-18); Calcium 7.8 MG/DL (8.5-10.1); Estimated Glom Filtration Rate 143 ML/MIN; Glucose 66 MG/DL (74-106); Osmolality,Calculated 273.4 MOS/KG (273-304); Total Protein 5.7 G/DL (6.4-8.3)
[2019-07-22 06:16] LABS: Band Neutrophils 11 % (0-10); Hypochromasia 1+; Lymphocytes 10 % (20-55); Ovalocytes Slight; Platelet Estimate Adequate; Segmented Neutrophils 61 % (50-85); Total Cells Counted 100
[2019-07-22] MEDS: FILGRASTIM-SNDZ 300 MCG/0.5 ML SYRINGE SUBCUT SCH ×2 (07:29→08:35)
[2019-07-22] MEDS: CIPROFLOXACIN INJ 400 MG in PREMIX 1 EACH IV SCH ×3 (07:29→21:12)
[2019-07-22] MEDS: POTASSIUM CHLORIDE 20 MEQ TABLET PO SCH ×2 (07:30→08:35)
[2019-07-22] MEDS: MAGNESIUM OXIDE 400 MG TABLET PO SCH ×3 (07:30→20:09)
[2019-07-22] MEDS: SODIUM HYPOCHLORITE 0.25% IRRIG 473 ML BOTTLE TOP SCH (08:35)
[2019-07-22] MEDS: MORPHINE ER 30 MG TABLET PO SCH ×2 (08:35→20:12)
[2019-07-22 11:04] LABS: Basophils % 0.3 % (0.0-0.8); Eosinophils # 0.1 10*3/uL (0.0-0.87); Eosinophils % 0.6 % (0.00-10.9); Hematocrit 31.5 VOL% (35.7-47.0); Hemoglobin 10.2 GM/DL (12.0-16.0); Immature Granulocytes % 9.9 %; Immature Granulocytes Absolute 0.95 #; Lymphocytes # 0.6 10*3/uL (1.4-4.0); Lymphocytes % 6.2 % (21.3-54.2); Mean Corpuscular HGB Conc 32.4 GM/DL (32-36); Mean Corpuscular Volume 92.4 FL (87-102); Mean Platelet Volume 9.4 FL (9.6-12.0); Monocytes % 14.5 % (1.7-12.7); Neutrophils % 68.5 % (38.7-73.9); Platelet Count 222 T/CUMM (130-400); Red Blood Count 3.41 MC/CUMM (3.8-5.5); Red Cell Distribution Width 17.2 % (9.3-17.3); White Blood Count 9.6 T/CUMM (4-12)
[2019-07-22 11:14] LABS: INR 1.3; PT Patient Result 13.6 SECS (9.6-12.2); Partial Thromboplastin Time 37.7 SECS (20.8-36.0)
[2019-07-22 11:23] LABS: Band Neutrophils 4 % (0-10); Eosinophils 2 % (0-10); Hypochromasia 1+; Lymphocytes 13 % (20-55); Platelet Estimate Adequate; Segmented Neutrophils 73 % (50-85); Total Cells Counted 100
[2019-07-23] MEDS: HYDROmorphone 2 MG/1 ML VIAL IV PRN ×9 (02:10→23:13)
[2019-07-23 04:49] LABS: Basophils # 0.1 10*3/uL (0.0-0.2); Basophils % 0.3 % (0.0-0.8); Eosinophils # 0.1 10*3/uL (0.0-0.87); Eosinophils % 0.5 % (0.00-10.9); Hematocrit 30.4 VOL% (35.7-47.0); Hemoglobin 9.7 GM/DL (12.0-16.0); Immature Granulocytes Absolute 2.02 #; Lymphocytes # 1.2 10*3/uL (1.4-4.0); Lymphocytes % 6.4 % (21.3-54.2); Mean Corpuscular HGB Conc 31.9 GM/DL (32-36); Mean Platelet Volume 9.9 FL (9.6-12.0); Monocytes % 9.7 % (1.7-12.7); Neutrophils % 72.1 % (38.7-73.9); Platelet Count 255 T/CUMM (130-400); Red Blood Count 3.27 MC/CUMM (3.8-5.5); White Blood Count 18.4 T/CUMM (4-12)
[2019-07-23 05:11] LABS: Calcium 7.7 MG/DL (8.5-10.1); Osmolality,Calculated 270.7 MOS/KG (273-304)
[2019-07-23] MEDS: SODIUM CHLOR 0.9% KCL 40 MEQ 40 MEQ/1,000 ML BAG IV SCH ×2 (05:12→18:28)
[2019-07-23 05:13] LABS: Alanine Aminotransferase < 9 U/L (13-56); Albumin 1.1 G/DL (3.4-5.0); Alkaline Phosphatase 234 U/L (45-117); Aspartate Amino Transferase 21 U/L (0-37); Blood Urea Nitrogen 2 MG/DL (7-18); Eosinophils 2 % (0-10); Estimated Glom Filtration Rate 143 ML/MIN; Glucose 75 MG/DL (74-106); Lymphocytes 9 % (20-55); Osmolality,Calculated 273.4 MOS/KG (273-304); Platelet Estimate Normal; Polychromasia Few; Segmented Neutrophils 76 % (50-85); Total Cells Counted 100; Total Protein 5.4 G/DL (6.4-8.3)
[2019-07-23] MEDS: POTASSIUM CHLORIDE 20 MEQ TABLET PO SCH (08:43)
[2019-07-23] MEDS: MAGNESIUM OXIDE 400 MG TABLET PO SCH ×2 (08:44→20:58)
[2019-07-23] MEDS: MORPHINE ER 30 MG TABLET PO SCH ×3 (08:44→19:43)
[2019-07-23] MEDS: fentaNYL 12 MCG/HR PATCH TRANSDERM SCH (08:45)
[2019-07-23] MEDS: CIPROFLOXACIN INJ 400 MG in PREMIX 1 EACH IV SCH ×2 (08:46→20:56)
[2019-07-23] MEDS: SODIUM HYPOCHLORITE 0.25% IRRIG 473 ML BOTTLE TOP SCH (08:47)
[2019-07-24] MEDS: HYDROmorphone 2 MG/1 ML VIAL IV PRN ×5 (03:53→12:53)
[2019-07-24 07:45] LABS: Basophils % 0.2 % (0.0-0.8); Eosinophils # 0.1 10*3/uL (0.0-0.87); Eosinophils % 0.3 % (0.00-10.9); Hematocrit 33.2 VOL% (35.7-47.0); Hemoglobin 10.5 GM/DL (12.0-16.0); Immature Granulocytes % 14.4 %; Immature Granulocytes Absolute 2.44 #; Lymphocytes # 1.2 10*3/uL (1.4-4.0); Lymphocytes % 7.2 % (21.3-54.2); Mean Corpuscular HGB Conc 31.6 GM/DL (32-36); Mean Corpuscular Volume 93.8 FL (87-102); Mean Platelet Volume 9.8 FL (9.6-12.0); Monocytes % 9.4 % (1.7-12.7); Neutrophils % 68.5 % (38.7-73.9); Platelet Count 296 T/CUMM (130-400); Red Blood Count 3.54 MC/CUMM (3.8-5.5); Red Cell Distribution Width 16.8 % (9.3-17.3)
[2019-07-24] MEDS: SODIUM CHLOR 0.9% KCL 40 MEQ 40 MEQ/1,000 ML BAG IV SCH ×2 (07:59→12:48)
[2019-07-24 08:03] LABS: Band Neutrophils 4 % (0-10); Lymphocytes 12 % (20-55); Platelet Estimate Adequate; Segmented Neutrophils 75 % (50-85); Total Cells Counted 100
[2019-07-24 08:04] LABS: Hypochromasia 1+
[2019-07-24 08:13] LABS: Calcium 7.9 MG/DL (8.5-10.1); Osmolality,Calculated 272.5 MOS/KG (273-304)
[2019-07-24] MEDS: POTASSIUM CHLORIDE 20 MEQ TABLET PO SCH (08:23)
[2019-07-24] MEDS: MAGNESIUM OXIDE 400 MG TABLET PO SCH ×2 (08:24→20:47)
[2019-07-24] MEDS: CIPROFLOXACIN INJ 400 MG in PREMIX 1 EACH IV SCH ×3 (08:25→20:51)
[2019-07-24] MEDS: SODIUM HYPOCHLORITE 0.25% IRRIG 473 ML BOTTLE TOP SCH (08:25)
[2019-07-24] MEDS: MORPHINE ER 30 MG TABLET PO SCH ×2 (08:25→20:00)
[2019-07-24] MEDS ORDERED: oxyCODONE/ACETAMINOPHEN 5-325 MG TABLET PO PRN (14:16)
[2019-07-24] MEDS: oxyCODONE/ACETAMINOPHEN 5-325 MG TABLET PO PRN ×2 (16:15→22:41)
[2019-07-24] MEDS: HYDROmorphone 2 MG/1 ML VIAL IM PRN ×2 (17:13→20:43)
[2019-07-25] MEDS: SODIUM CHLOR 0.9% KCL 40 MEQ 40 MEQ/1,000 ML BAG IV SCH (01:52)
[2019-07-25] MEDS: HYDROmorphone 2 MG/1 ML VIAL IM PRN ×2 (04:25→10:40)
[2019-07-25 05:44] LABS: Basophils % 0.2 % (0.0-0.8); Eosinophils # 0.1 10*3/uL (0.0-0.87); Eosinophils % 0.4 % (0.00-10.9); Hematocrit 31.9 VOL% (35.7-47.0); Immature Granulocytes % 9.4 %; Lymphocytes # 1.1 10*3/uL (1.4-4.0); Lymphocytes % 8.8 % (21.3-54.2); Mean Corpuscular HGB Conc 31.3 GM/DL (32-36); Mean Corpuscular Volume 93.3 FL (87-102); Mean Platelet Volume 10.1 FL (9.6-12.0); Monocytes % 12.7 % (1.7-12.7); Neutrophils % 68.5 % (38.7-73.9); Platelet Count 277 T/CUMM (130-400); Red Blood Count 3.42 MC/CUMM (3.8-5.5); Red Cell Distribution Width 16.7 % (9.3-17.3); White Blood Count 12.8 T/CUMM (4-12)
[2019-07-25 06:05] LABS: Calcium 7.4 MG/DL (8.5-10.1); Osmolality,Calculated 274.4 MOS/KG (273-304)
[2019-07-25 06:10] LABS: Band Neutrophils 2 % (0-10); Hypochromasia 1+; Lymphocytes 7 % (20-55); Platelet Estimate Adequate; Segmented Neutrophils 77 % (50-85); Total Cells Counted 100
[2019-07-25] MEDS: POTASSIUM CHLORIDE 20 MEQ TABLET PO SCH (07:59)
[2019-07-25] MEDS: MAGNESIUM OXIDE 400 MG TABLET PO SCH (08:00)
[2019-07-25] MEDS: MORPHINE ER 30 MG TABLET PO SCH (08:05)
[2019-07-25] MEDS: oxyCODONE/ACETAMINOPHEN 5-325 MG TABLET PO PRN ×2 (08:09→14:02)
[2019-07-25] MEDS: CIPROFLOXACIN INJ 400 MG in PREMIX 1 EACH IV SCH (09:36)
[2019-07-25] MEDS: SODIUM HYPOCHLORITE 0.25% IRRIG 473 ML BOTTLE TOP SCH (10:40)
[2019-07-25 11:11] VITALS: BP 112/57
[2019-07-25] MEDS: ONDANSETRON 4 MG/2 ML VIAL IV PRN (13:11)
[2019-07-25] MEDS ORDERED: HEPARIN LOCK FLUSH 500 UNIT/5 ML SYRINGE IV ONE (14:38)
== END 2019-07-25 16:15 | disposition swing bed (61) | DRG 710 ==
LOC: EDBD → EDUNIT# → N.ED 20:48 → N.EDINP 22:39 → N.3E 23:35
PROVIDERS: ADMIT Surgery; ATTEND Surgery